=== PATIENT | female | born 1940 | race Caucasian/White ===

== ENCOUNTER 2017-06-18 12:32 | Outpatient (CLI) | payer MEDICARE | END 2017-06-18 12:33 | disposition short-term general hospital (02) | LOC: EMS 12:32 | PROVIDERS: ATTEND Surgery | DX: R53.1 Weakness (principal); R51 Headache; R42 Dizziness and giddiness; H53.8 Other visual disturbances | CPT/HCPCS: A0170; A0425; A0427 ==

== ENCOUNTER 2017-06-25 21:32 | Emergency (ER) | payer MEDICARE ==
[2017-06-25 22:20] LABS: BASOPHILS # (AUTO) 0.1 10^3/uL (0.0-0.1); EOSINOPHILS # (AUTO) 0.4 10^3/uL (0.0-0.7); EOSINOPHILS % (AUTO) 5.5 %; HCT - HEMATOCRIT 36.5 % (37.0-47.0); HGB - HEMOGLOBIN 12.1 g/dL (12.0-16.0); LYMPHOCYTES # (AUTO) 1.7 10^3/uL (1.5-3.5); LYMPHOCYTES % (AUTO) 26.2 %; MEAN CORPUSCULAR HEMOGLOBIN 31.2 pg (27.0-31.0); MEAN CORPUSCULAR HGB CONC 33.3 g/dL (32.0-36.0); MEAN CORPUSCULAR VOLUME 93.7 fL (81.0-99.0); MONOCYTES # (AUTO) 0.5 10^3/uL (0.0-1.0); NEUTROPHILS # (AUTO) 3.9 10^3/uL (1.5-6.6); NEUTROPHILS % (AUTO) 59.3 %; RED BLOOD COUNT 3.89 10^6/uL (4.20-5.40); RED CELL DISTRIBUTION WIDTH 13.4 % (12.0-15.0); UNCORRECTED WHITE BLOOD COUNT 6.6 x10^3/uL; WHITE BLOOD COUNT 6.6 x10^3/uL (4.8-10.8)
[2017-06-25 22:35] LABS: ALBUMIN/GLOBULIN RATIO 1.3 (1.0-2.2); BILIRUBIN,TOTAL 0.7 mg/dL (0.2-1.0); BUN - BLOOD UREA NITROGEN 19 mg/dL (6-20); CALCIUM 9.1 mg/dL (8.5-10.3); CARBON DIOXIDE - CO2 28 mmol/L (21-32); CHLORIDE 97 mmol/L (101-111); CREATININE 1.1 mg/dL (0.4-1.0); GFR - MDRD 48 (>89); GLUCOSE 111 mg/dL (70-100); LIPASE 24 U/L (22-51); SODIUM 136 mmol/L (135-145); TOTAL PROTEIN 7.3 g/dL (6.7-8.2)
[2017-06-25] MEDS ORDERED: SODIUM CHLORIDE 0.9% 1,000 ML IV ONE (22:50)
[2017-06-26] MEDS ORDERED: ACETAMINOPHEN 500 MG TABLET PO STA
[2017-06-26] MEDS ORDERED: ACETAMINOPHEN 500 MG TABLET PO ONE (00:08)
[2017-06-26 00:41] VITALS: BP 155/81
--- NOTE | 2017-06-26 00:49 | CT Preliminary Report ---
Exam: CT Head W/O IMPRESSION: Generalized age-related cortical atrophic changes without evidence of acute intracranial abnormality. [facility] SITE ID: [id number]
--- NOTE | 2017-06-26 01:05 | CT Report ---
EXAM: CT HEAD EXAM DATE: 06/26/2017 12:42 AM. CLINICAL HISTORY: Head pain. COMPARISON: None. TECHNIQUE: Multiaxial CT images were obtained from the foramen magnum to the vertex. IV contrast: Non e. Reformats: Coronal. In accordance with CT protocol optimization, one or more of the following dose reduction techniques w ere utilized for this exam: automated exposure control, adjustment of mA and/or KV based on patient s ize, or use of iterative reconstructive technique. FINDINGS: Parenchyma: No intraparenchymal hemorrhage. No evidence of mass, midline shift, or CT findings of acu te infarction. Lugo-white differentiation is distinct. Extraaxial Spaces: Normal for age. No subdural or epidural collections identified. Ventricles: The ventricles and cortical sulci are moderately enlarged, consistent with age-related ti ssue loss. Sinuses: Postsurgical changes from cataract extractions are noted in the globes. The paranasal and ma stoid sinuses are unremarkable. Bones: No evidence of fracture or calvarial defect. Other: Mild diffuse chronic microangiopathic white matter changes are evident. Moderate intracranial atherosclerosis is noted. IMPRESSION: Generalized age-related cortical atrophic changes without evidence of acute intracranial abnormality. [facility] Referring Provider Line: [phone] SITE ID: [id number]
--- NOTE | 2017-06-26 01:13 | ED Physician Documentation ---
History of Present Illness - Stated complaint Stated Complaint: HIGH BP - Chief complaint Chief Complaint: Cardiac - History obtained from History obtained from: Patient, Family - History of Present Illness Timing: Today - Additonal information Additional information: Patient is a 76 year old female with a history of parkinson's disease. Patient was started on a new medicine about three weeks ago, and one of the metabolites is a meth derivative. Patient states that today she has had high blood pressure and headaches. Patient states that she normally has low blood pressure. Patient denies any nausea, vomiting, chest pain, fever or chills. Review of Systems Constitutional: denies: Fever, Chills Eyes: denies: Decreased vision, Photophobia Ears: denies: Ear pain, Drainage/discharge Nose: denies: Congestion, Epistaxis Throat: denies: Oral lesions / sores, Sore throat Cardiac: denies: Chest pain / pressure, Palpitations Respiratory: denies: Cough GI: denies: Abdominal Pain, Nausea, Vomiting : denies: Dysuria, Frequency, Hesitancy Skin: denies: Rash, Lesions, Abrasion (s) Musculoskeletal: denies: Neck pain, Back pain, Extremity pain, Joint pain Neurologic: reports: Headache. denies: Generalized weakness, Focal weakness, Numbness, Syncope, Seizure, Head injury, LOC Psychiatric: denies: Depressed, Suicidal Immunocompromised: denies: Immunocompromised PD PAST MEDICAL HISTORY - Past Medical History Past Medical History: Yes Neuro: Parkinson's - Allergies Allergies/Adverse Reactions: Allergies Allergy/AdvReac Type Severity Reaction Status Date / Time iodine Allergy Hives Verified 06/25/17 21:43 - Social History Does the pt smoke?: No Smoking Status: Never smoker Does the pt drink ETOH?: No Does the pt have substance abuse?: No - Immunizations Immunizations are current?: Yes - POLST Patient has POLST: No PD ED PE NORMAL - Vitals Vital signs reviewed: Yes - General General: Alert and oriented X 3, No acute distress - HEENT HEENT: Atraumatic, PERRL, Pharynx benign - Neck Neck: Supple, no meningeal sign, No JVD - Cardiac Cardiac: RRR, No murmur - Respiratory Respiratory: No respiratory distress, Clear bilaterally - Abdomen Abdomen: Soft, Non tender, Non distended - Derm Derm: Normal color, Warm and dry, No rash - Extremities Extremities: No deformity, No edema, No calf tenderness / cord - Neuro Neuro: Alert and oriented X 3, 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, No sensory deficit, Normal speech - Psych Psych: Normal mood, Normal affect PD ED PE EXPANDED - HEENT HEENT: Dry mucous membranes - Neuro Neuro: Other (tremor of right upper extremity) Results - Vitals Vitals: Vital Signs - 24 hr 06/25/17 06/25/17 06/26/17 21:39 22:38 00:40 Temperature 36.4 C L Heart Rate 100 93 100 Respiratory 18 20 18 Rate Blood Pressure 191/110 H 177/93 H 155/81 H O2 Saturation 95 99 Oxygen O2 Source Room air - EKG (time done) 2222 Rate: Rate (enter#) (90) Rhythm: NSR [place]: LAD QRS: LVH Ischemia: Normal ST segments Compare to prior EKG: Old EKG unavailable - Labs Labs: Laboratory Tests 06/25/17 06/25/17 06/25/17 22:12 22:12 22:12 WBC 6.6 RBC 3.89 L Hgb 12.1 Hct 36.5 L MCV 93.7 MCH 31.2 H MCHC 33.3 RDW 13.4 Plt Count 207 MPV 8.0 Neut # 3.9 Lymph # 1.7 [place] # 0.5 Eos # 0.4 Baso # 0.1 Absolute Nucleated RBC 0.00 Nucleated RBC % 0.0 Sodium 136 Potassium 3.0 L Chloride 97 L Carbon Dioxide 28 Anion Gap 11.0 BUN 19 Creatinine 1.1 H Estimated GFR (MDRD) 48 L Glucose 111 H Calcium 9.1 Total Bilirubin 0.7 AST 16 ALT < 10 L Alkaline Phosphatase 78 Troponin I < 0.04 Total Protein 7.3 Albumin 4.1 Globulin 3.2 Albumin/Globulin Ratio 1.3 Lipase 24 - Rads (name of study) ct head Radiology: Final report received (no acute pathology) PD MEDICAL DECISION MAKING - ED course Complexity details: reviewed old records, reviewed results, re-evaluated patient , considered differential, d/w patient, d/w family, d/w production support consultant ED course: Patient was seen and examined at bedside. Iv access was gained and labs were drawn. ekg was performed but showed no acute ischemic changes. labs were drawn and showed some renal insufficiency, which patient stated she had a history of. patient stated sh had a mild headache and was treated with tylenol and fluids and sent for iimaging. when pateint returned the results were reviewed and showed no acute pathology. patient's headache resolved. Patient' s htn was likely secondary to the previous medications so the risk of starting antihypertensives outweighed the benefits. Patient had no focal neurological deficits and was stable for discharge with outpatient follow up. Departure - Departure Disposition: 01 Home, Self Care Clinical Impression: Drug reaction Condition: Good Instructions: ED Drug React Adverse Other Follow-Up: Misha Zavala MD [Primary Care Provider] - Comments: Your diagnostics today were within normal limits. You should follow the advice of your neurologist. You should no longer take the medications. You can take motrin or tylenol as needed for pain. I would not start blood pressure medications at this time due to your history of hypertension. You may return to the emergency department at any time for new, worsening or uncontrollable symptoms. Discharge Date/Time: 06/26/17 01:22
== END 2017-06-26 01:22 | disposition home or self-care (01) ==
LOC: ED 21:32
DX: T50.995A Adverse effect of other drugs, medicaments and biological substances, initial encounter (principal); R03.0 Elevated blood-pressure reading, without diagnosis of hypertension; G20 Parkinson's disease
CPT/HCPCS: 36415; 70450; 80053; 83690; 84484; 85025; 93005; 96360; 99283; 99284; A9270

== ENCOUNTER 2017-07-04 11:08 | Emergency (ER) | payer MEDICARE ==
--- NOTE | 2017-07-04 13:13 | ED Physician Documentation ---
History of Present Illness - Stated complaint Stated Complaint: HIGH BP - Chief complaint Chief Complaint: General - History obtained from History obtained from: Patient, Family (son) - History of Present Illness Timing: Other (76-year-old woman with Parkinson's disease, started on selegiline at the end of last month and discontinued it on or around the third of this month because of elevated blood pressures which are continued and make her nervous. She been seeing numbers as high as 200/100 at home. She is relatively asymptomatic with this, did have a mild headache which resolved with Tylenol. She denies chest pain, trouble breathing, or pedal edema. The blood pressure cuff at home is a bicep cuff, not a forearm cuff. She was seen here about a week ago and had testing done which were demonstrated creatinine 1.1, negative head CT.) Review of Systems Constitutional: denies: Fever, Chills Nose: denies: Rhinorrhea / runny nose, Congestion Cardiac: denies: Chest pain / pressure, Palpitations, Pedal edema, Calf pain Respiratory: denies: Dyspnea, Cough GI: denies: Abdominal Pain PD PAST MEDICAL HISTORY - Past Medical History Neuro: Parkinson's - Present Medications Home Medications: Ambulatory Orders Medication Instructions Recorded Confirmed Aspirin 325 mg PO DAILY 07/04/17 07/04/17 Carbidopa/Levodopa [Carbidopa-Levo 1 tab PO DAILY PM 07/04/17 07/04/17 ER 25-100 Tab] Carbidopa/Levodopa 1 tab PO QID 07/04/17 07/04/17 [Carbidopa-Levodopa 25-100 Tab] Cetirizine [ZyrTEC] 10 mg PO DAILY 07/04/17 07/04/17 Omeprazole [PriLOSEC] 20 mg PO DAILY 07/04/17 07/04/17 - Allergies Allergies/Adverse Reactions: Allergies Allergy/AdvReac Type Severity Reaction Status Date / Time iodine Allergy Hives Verified 06/25/17 21:43 - Social History Does the pt smoke?: No Smoking Status: Never smoker Does the pt drink ETOH?: No Does the pt have substance abuse?: No - Immunizations Immunizations are current?: Yes - POLST Patient has POLST: No PD ED PE NORMAL - Vitals Vital signs reviewed: Yes - General General: Alert and oriented X 3, No acute distress, Other (Pleasant, cooperative , oriented, sitting in a wheelchair in no distress) - Cardiac Cardiac: RRR, No murmur - Respiratory Respiratory: No respiratory distress, Clear bilaterally - Abdomen Abdomen: Non tender - Extremities Extremities: No edema, No calf tenderness / cord - Neuro Neuro: Alert and oriented X 3, Normal speech Results - Vitals Vitals: Vital Signs - 24 hr 07/04/17 07/04/17 11:40 13:07 Temperature 36.4 C L Heart Rate 80 Respiratory 17 Rate Blood Pressure 105/64 183/94 H O2 Saturation 98 Oxygen O2 Source Room air - EKG (time done) 1337 Rate: Rate (enter#) (85) Rhythm: NSR [place]: Normal QRS: LVH Ischemia: No: ST elevation c/w ischemia Compare to prior EKG: Unchanged from prior EKG - Labs Labs: Laboratory Tests 07/04/17 13:20 Sodium 138 Potassium 3.2 L Chloride 102 Carbon Dioxide 28 Anion Gap 8.0 BUN 13 Creatinine 0.9 Estimated GFR (MDRD) 61 L Glucose 104 H Calcium 9.3 Total Bilirubin 0.5 AST 15 ALT < 10 L Alkaline Phosphatase 69 Total Protein 7.5 Albumin 4.3 Globulin 3.2 Albumin/Globulin Ratio 1.3 Lipase 27 PD MEDICAL DECISION MAKING - ED course ED course: This is a 76-year-old woman with labile blood pressures after starting selegiline which she has since stopped. There is no evidence of endorgan damage. Given that her blood pressures have been labile and at times normotensive I would be hesitant to start an antihypertensive at this juncture. Departure - Departure Disposition: 01 Home, Self Care Clinical Impression: Hypertension Qualifiers: Hypertension type: essential hypertension Qualified Code(s): I10 - Essential ( primary) hypertension Condition: Good Record reviewed to determine appropriate education?: Yes Comments: Return if you develop severe symptoms such as a severe headache, chest pain, trouble breathing, otherwise follow-up with your physician.
[2017-07-04 14:13] LABS: ALBUMIN/GLOBULIN RATIO 1.3 (1.0-2.2); BILIRUBIN,TOTAL 0.5 mg/dL (0.2-1.0); BUN - BLOOD UREA NITROGEN 13 mg/dL (6-20); CALCIUM 9.3 mg/dL (8.5-10.3); CARBON DIOXIDE - CO2 28 mmol/L (21-32); CHLORIDE 102 mmol/L (101-111); CREATININE 0.9 mg/dL (0.4-1.0); GFR - MDRD 61 (>89); GLUCOSE 104 mg/dL (70-100); LIPASE 27 U/L (22-51); POTASSIUM 3.2 mmol/L (3.5-5.0); SODIUM 138 mmol/L (135-145); TOTAL PROTEIN 7.5 g/dL (6.7-8.2)
[2017-07-04] MEDS ORDERED: POTASSIUM BICARB 25 MEQ TABLET PO STA (14:33)
[2017-07-04] MEDS ORDERED: POTASSIUM BICARB 25 MEQ TABLET PO ONE (14:43)
[2017-07-04 14:52] VITALS: BP 189/88
== END 2017-07-04 15:00 | disposition home or self-care (01) ==
LOC: ED 11:08
DX: I10 Essential (primary) hypertension (principal); I48.91 Unspecified atrial fibrillation; G20 Parkinson's disease; Z79.82 Long term (current) use of aspirin
CPT/HCPCS: 36415; 80053; 83690; 93005; 99282; 99283; A9270

== ENCOUNTER 2017-08-30 10:14 | Outpatient (CLI) | payer MEDICARE | END 2017-08-30 10:15 | disposition critical access hospital (66) | LOC: EMS 10:14 | PROVIDERS: ATTEND Surgery | DX: R53.1 Weakness (principal); W18.30XA Fall on same level, unspecified, initial encounter; Y92.018 Other place in single-family (private) house as the place of occurrence of the external cause | CPT/HCPCS: A0425; A0427 ==

== ENCOUNTER 2017-08-30 10:17 | Observation (INO) | payer MEDICARE ==
[2017-08-30 10:49] LABS: BASOPHILS % (AUTO) 0.7 %; EOSINOPHILS # (AUTO) 0.1 10^3/uL (0.0-0.7); EOSINOPHILS % (AUTO) 1.8 %; HCT - HEMATOCRIT 37.4 % (37.0-47.0); HGB - HEMOGLOBIN 12.7 g/dL (12.0-16.0); LYMPHOCYTES # (AUTO) 1.1 10^3/uL (1.5-3.5); LYMPHOCYTES % (AUTO) 16.8 %; MEAN CORPUSCULAR HEMOGLOBIN 31.7 pg (27.0-31.0); MEAN CORPUSCULAR HGB CONC 33.9 g/dL (32.0-36.0); MEAN CORPUSCULAR VOLUME 93.4 fL (81.0-99.0); MEAN PLATELET VOLUME 8.1 fL (7.9-10.8); MONOCYTES # (AUTO) 0.4 10^3/uL (0.0-1.0); MONOCYTES % (AUTO) 6.2 %; NEUTROPHILS # (AUTO) 4.9 10^3/uL (1.5-6.6); NEUTROPHILS % (AUTO) 74.5 %; NUCLEATED RED BLOOD CELLS AUTO 0.1 /100WBC; RED CELL DISTRIBUTION WIDTH 13.4 % (12.0-15.0); UNCORRECTED WHITE BLOOD COUNT 6.6 x10^3/uL; WHITE BLOOD COUNT 6.6 x10^3/uL (4.8-10.8)
--- NOTE | 2017-08-30 11:00 | XRAY Preliminary Report ---
Exam: XR CHEST 1 VIEW IMPRESSION: 1. Linear bibasilar scar/atelectasis. 2. Cardiomegaly. No vascular congestion. [facility] SITE ID: [id number]
--- NOTE | 2017-08-30 11:02 | XRAY Report ---
EXAM: CHEST RADIOGRAPHY EXAM DATE: 08/30/2017 10:54 AM. CLINICAL HISTORY: Chest pain. COMPARISON: None. TECHNIQUE: 1 view. FINDINGS: Lungs/Pleura: Linear bibasilar opacities. No vascular congestion . No pneumothorax. Mediastinum: Heart is enlarged. Aorta is mildly tortuous. Other: None. IMPRESSION: 1. Linear bibasilar scar/atelectasis. 2. Cardiomegaly. No vascular congestion. [facility] Referring Provider Line: [phone] SITE ID: [id number]
[2017-08-30 11:09] LABS: ALBUMIN/GLOBULIN RATIO 1.4 (1.0-2.2); BILIRUBIN,TOTAL 0.6 mg/dL (0.2-1.0); BUN - BLOOD UREA NITROGEN 15 mg/dL (6-20); CARBON DIOXIDE - CO2 30 mmol/L (21-32); CHLORIDE 100 mmol/L (101-111); GFR - MDRD 54 (>89); GLUCOSE 121 mg/dL (70-100); LIPASE 22 U/L (22-51); SODIUM 141 mmol/L (135-145)
[2017-08-30 11:10] LABS: POTASSIUM 2.5 mmol/L (3.5-5.0)
[2017-08-30] MEDS ORDERED: POTASSIUM CHLOR 10 MEQ/100 ML 10 MEQ/100 ML BAG IV ONE ×2 (12:16→12:33)
[2017-08-30] MEDS ORDERED: POTASSIUM BICARB 25 MEQ TABLET PO STA (12:16)
--- NOTE | 2017-08-30 12:20 | ED Physician Documentation ---
PD HPI SYNCOPE - Stated complaint Stated Complaint: NEAR SYNCOPE - Chief complaint Chief Complaint: Neuro - History obtained from History obtained from: Patient, Family - Additional information Additional information: Is a 77-year-old of Parkinson's disease. She got up twice overnight to urinate , during both episodes she felt very weak and could not make it to the bathroom. She was helped to the floor by her on the second episode, but there was no syncope. Paramedics were summoned and she was noted to be in rapid atrial fibrillation which is a new phenomenon for her. This was associated with some nonradiating substernal chest pressure, clamminess and sweats but no shortness of breath or pedal edema. She feels pretty much back to normal right now. Review of Systems Ten Systems: 10 systems reviewed and negative Constitutional: reports: Sweats. denies: Fever, Chills Cardiac: reports: Chest pain / pressure. denies: Palpitations Respiratory: denies: Dyspnea, Cough GI: denies: Abdominal Pain PD PAST MEDICAL HISTORY - Past Medical History Past Medical History: Yes Neuro: Parkinson's - Present Medications Home Medications: Ambulatory Orders Medication Instructions Recorded Confirmed Aspirin 325 mg PO DAILY 07/04/17 08/30/17 Carbidopa/Levodopa [Carbidopa-Levo 1 tab PO DAILY PM 07/04/17 08/30/17 ER 25-100 Tab] Carbidopa/Levodopa 1 tab PO QID 07/04/17 08/30/17 [Carbidopa-Levodopa 25-100 Tab] Cetirizine [ZyrTEC] 10 mg PO DAILY 07/04/17 08/30/17 Omeprazole [PriLOSEC] 20 mg PO DAILY 07/04/17 08/30/17 - Allergies Allergies/Adverse Reactions: Allergies Allergy/AdvReac Type Severity Reaction Status Date / Time iodine Allergy Hives Verified 08/30/17 10:23 - Social History Does the pt smoke?: No Smoking Status: Never smoker Does the pt drink ETOH?: No Does the pt have substance abuse?: No - Family History Family history: reports: Non contributory - Immunizations Immunizations are current?: Yes - POLST Patient has POLST: No PD ED PE NORMAL - Vitals Vital signs reviewed: Yes - General General: Alert and oriented X 3, No acute distress - HEENT HEENT: PERRL, EOMI - Neck Neck: Supple, no meningeal sign, No bony TTP - Cardiac Cardiac: RRR, No murmur - Respiratory Respiratory: No respiratory distress, Clear bilaterally - Abdomen Abdomen: Soft, Non tender - Back Back: No CVA TTP, No spinal TTP - Derm Derm: Normal color, Warm and dry - Extremities Extremities: No edema, No calf tenderness / cord - Neuro Neuro: Alert and oriented X 3, Normal speech - Psych Psych: Normal mood, Normal affect Results - Vitals Vitals: Vital Signs - 24 hr 08/30/17 08/30/17 08/30/17 10:18 11:09 11:46 Temperature 36.4 C L 36.9 C Heart Rate 95 93 87 Respiratory 17 16 18 Rate Blood Pressure 179/119 H 168/89 H 167/88 H O2 Saturation 96 98 98 08/30/17 12:45 Temperature Heart Rate 81 Respiratory 16 Rate Blood Pressure 129/75 O2 Saturation 95 Oxygen O2 Source Room air - EKG (time done) 1022 Rate: Rate (enter#) (93) Rhythm: NSR QRS: LVH Ischemia: Non specific changes. No: ST elevation c/w ischemia Computer interpretation: Agree with computer - Labs Labs: Laboratory Tests 08/30/17 08/30/17 08/30/17 10:41 10:41 10:41 WBC 6.6 RBC 4.00 L Hgb 12.7 Hct 37.4 MCV 93.4 MCH 31.7 H MCHC 33.9 RDW 13.4 Plt Count 213 MPV 8.1 Neut # 4.9 Lymph # 1.1 L [place] # 0.4 Eos # 0.1 Baso # 0.0 Absolute Nucleated RBC 0.00 Nucleated RBC % 0.1 Sodium 141 Potassium 2.5 L* Chloride 100 L Carbon Dioxide 30 Anion Gap 11.0 BUN 15 Creatinine 1.0 Estimated GFR (MDRD) 54 L Glucose 121 H Calcium 9.0 Total Bilirubin 0.6 AST 22 ALT < 10 L Alkaline Phosphatase 73 Troponin I < 0.04 Total Protein 7.0 Albumin 4.1 Globulin 2.9 Albumin/Globulin Ratio 1.4 Lipase 22 - Rads (name of study) 1v chest Radiology: EMP read contemporaneously (Linear bibasilar scar/atelectasis, cardiomegaly) PD MEDICAL DECISION MAKING - ED course ED course: This is a 77-year-old woman with Parkinson's who presents with 2 near syncopal episodes and weakness, newly diagnosed paroxysmal rapid atrial fibrillation and profound hypokalemia. The potassium was repleted both IV and orally, she should probably be observed in the hospital overnight plus or minus echocardiogram and a call was placed to the hospitalist at 12:26 PM for observation. - Consults Consults: Consulted (name) (Dr Gareth Braden for obs at 1245pm by phone) Departure - Departure Disposition: ED Place in Observation Clinical Impression: Weakness, Hypokalemia, Cardiomegaly, Paroxysmal atrial fibrillation Chest pain Qualifiers: Chest pain type: unspecified Qualified Code(s): R07.9 - Chest pain, unspecified Condition: Stable
[2017-08-30] MEDS ORDERED: ACETAMINOPHEN 325 MG TABLET PO STA (12:26)
[2017-08-30] MEDS ORDERED: POTASSIUM BICARB 25 MEQ TABLET PO ONE (12:32)
[2017-08-30] MEDS ORDERED: SODIUM CHLORIDE FLUSH 0.9% 10 ML SYRINGE IVP PRN (12:49)
[2017-08-30] MEDS ORDERED: IBUPROFEN 600 MG TABLET PO PRN (12:49)
[2017-08-30] MEDS ORDERED: ACETAMINOPHEN 325 MG TABLET PO PRN (12:49)
[2017-08-30] MEDS ORDERED: FAMOTIDINE 20 MG TABLET PO SCH ×2 (13:00→21:00)
[2017-08-30] MEDS: SODIUM CHLORIDE FLUSH 0.9% 10 ML SYRINGE IVP SCH ×2 (13:33→22:26)
[2017-08-30] MEDS ORDERED: CETIRIZINE 10 MG TABLET PO PRN (14:36)
[2017-08-30] MEDS: ENOXAPARIN 40 MG/0.4 ML SYRINGE SUBQ SCH (15:00)
[2017-08-30] MEDS: CARBIDOPA/LEVODOPA 25 MG/100 MG TABLET PO SCH ×2 (15:00→19:03)
[2017-08-30] MEDS: NS W/40 MEQ KCL 1,000 ML IV SCH (18:43)
[2017-08-30] MEDS ORDERED: CARBIDOPA/LEVODOPA ER 25 MG/100 MG TABLET PO SCH (22:30)
--- NOTE | 2017-08-31 02:10 | Ultrasound Preliminary Report ---
Exam: US CAROTID DOPPLER COMPLETE IMPRESSION: 1. Bilateral carotid plaquing, left worse than right. There is 50-69% stenosis in the proximal left i nternal carotid artery. 2. Antegrade flow in both vertebral arteries. Validated velocity measurements with angiographic measurements and velocity criteria are extrapolated from diameter data as defined by the Society of Radiologists in Ultrasound Consensus Conference Radi ology 2003; 229;340-346. [facility] SITE ID: [id number]
--- NOTE | 2017-08-31 02:25 | Ultrasound Report ---
EXAM: CAROTID DOPPLER ULTRASOUND EXAM DATE: 08/31/2017 01:09 AM. CLINICAL HISTORY: Near syncope. COMPARISON: None. TECHNIQUE: Real-time sonographic vascular imaging was performed by the director of compliance through the [employer] d arterial system with a linear transducer utilizing color-flow, Doppler flow and spectral analysis. Multiple patient care representative static images were saved for review. FINDINGS: On the right there is plaquing in the proximal internal carotid artery without significant stenosis. Antegrade flow is seen in the right vertebral artery. On the left there is plaquing in the proximal internal carotid artery with stenosis of 50-69%. Antegrade flow is seen in the left vertebra l artery. VELOCITIES: Right: CCA Prox: PSV 84.4 cm/sec. CCA Dist: PSV 67.6 cm/sec, EDV 16.2 cm/sec. ECA: PSV 65.3 cm/sec. RT BULB: PSV 47.6 cm/sec, EDV 17.3 cm/sec, ICA/CCA Ratio: 0.7. ICA Prox: PSV 89.6 cm/sec, EDV 29.4 cm/sec, ICA/CCA Ratio: 1.3. ICA Mid: PSV 74.2 cm/sec, EDV 25.5 cm/sec, ICA/CCA Ratio: 1.1. ICA Dist: PSV 106.6 cm/sec, EDV 32.5 cm/sec, ICA/CCA Ratio: 1.6. Vertebral Artery: PSV 108 cm/sec. RVA flow direction: Antegrade. Left: CCA Prox: PSV 120 cm/sec. CCA Dist: PSV 64.9 cm/sec, EDV 14.7 cm/sec. ECA: PSV 173 cm/sec. LFT BULB: PSV 128.3 cm/sec, EDV 26.27 cm/sec, ICA/CCA Ratio: 1.96. ICA Prox: PSV 159.5 cm/sec, EDV 35.2 cm/sec, ICA/CCA Ratio: 2.4. ICA Mid: PSV 117.4 cm/sec, EDV 27.2 cm/sec, ICA/CCA Ratio: 1.8. ICA Dist: PSV 67.4 cm/sec, EDV 19.8 cm/sec, ICA/CCA Ratio: 1.0. Vertebral Artery: PSV 84.1 cm/sec. RVA flow direction: Antegrade. Other: None. IMPRESSION: 1. Bilateral carotid plaquing, left worse than right. There is 50-69% stenosis in the proximal left i nternal carotid artery. 2. Antegrade flow in both vertebral arteries. Validated velocity measurements with angiographic measurements and velocity criteria are extrapolated from diameter data as defined by the Society of Radiologists in Ultrasound Consensus Conference Radi ology 2003; 229;340-346. [facility] Referring Provider Line: [phone] SITE ID: [id number]
[2017-08-31 06:26] LABS: CALCIUM 8.5 mg/dL (8.5-10.3); CREATININE 0.9 mg/dL (0.4-1.0); MAGNESIUM 1.8 mg/dL (1.7-2.8)
[2017-08-31] MEDS: SODIUM CHLORIDE FLUSH 0.9% 10 ML SYRINGE IVP SCH ×2 (06:34→14:06)
[2017-08-31] MEDS: CARBIDOPA/LEVODOPA 25 MG/100 MG TABLET PO SCH ×3 (07:04→15:07)
[2017-08-31] MEDS: NS W/40 MEQ KCL 1,000 ML IV SCH (07:06)
[2017-08-31] MEDS ORDERED: POTASSIUM CHLORIDE 20 MEQ TABLET PO SCH (08:21)
[2017-08-31] MEDS: ENOXAPARIN 40 MG/0.4 ML SYRINGE SUBQ SCH (08:51)
[2017-08-31] MEDS ORDERED: ASPIRIN EC 81 MG TABLET PO SCH (09:00)
[2017-08-31] MEDS ORDERED: POLYETHYLENE GLYCOL 3350 17 GM PACKET PO SCH (09:00)
[2017-08-31] MEDS ORDERED: CARVEDILOL 3.125 MG TABLET PO SCH (11:00)
--- NOTE | 2017-08-31 16:49 | Discharge Plan ---
Discharge Plan Disposition: 01 Home, Self Care Condition: Fair Prescriptions: Carvedilol [Coreg] 3.125 mg PO BID #60 tablet Diet: Cardiac Activity Restrictions: Activity as Tolerated Driving Restrictions: No Assistance Devices: Walker Instruction Topics: Carvedilol tablets Additional Instructions or Follow Up instructions: Start taking 1 adult Aspirin daily (325 mg). Start taking Carvedilol 1 tablet twice a day. Start using spport stockings daily, when awake, off at bedtime. Stay hydrated. See your doctor in 1-2 weeks for a Potassium blood test and for furter medicatipn adjustments and to have a stress test arranged. No Smoking: If you smoke, Please STOP! Call for help. Follow-up with: Misha Zavala MD [Primary Care Provider] -
[2017-08-31 17:49] VITALS: BP 170/69
--- NOTE | 2017-09-20 12:46 | HISTORY & PHYSICAL EXAMINATION ---
DATE OF SERVICE: 08/30/2017 Physician: Brielle Knapp MD CHIEF COMPLAINT: Near syncope. PAST MEDICAL HISTORY: Parkinson's, GERD, Seasonal allergies. HISTORY OF PRESENT ILLNESS: This is a 77-year-old white female with a history of Parkinson's disease, on medications. She denies a past cardiac history. The patient presents after getting up twice overnight to go to the bathroom and felt very weak with both episodes. With the second episode , her helped her "slump to the floor." There was no syncope or fall or trauma during either episode. EMS was called to transport the patient to the emergency room and their assessment of her initial heart rhythm was atrial fibrillation, which is new onset for her. The patient remembers feeling palpitations and chest pressure, but no shortness of breath. In general, the patient denies anginal episodes or CHF complaints. REVIEW OF SYSTEMS: A comprehensive review of systems was performed and the pertinent positives are as above. SOCIAL HISTORY: The patient lives with her . She no longer drives a car. The patient never smoked. She drinks no alcohol. There is no history of drug abuse. FAMILY HISTORY: No inherited diseases. MEDICATIONS AT HOME 1. Adult-dose aspirin daily. 2. Carbidopa/levodopa. 3. Cetirizine 10 mg p.o. daily. 4. Prilosec 20 mg p.o. daily. ALLERGIES: IODINE, which caused hives. PHYSICAL EXAMINATION GENERAL: Elderly white female in no distress sitting upright in bed. VITAL SIGNS: Blood pressure 180/119 on admission, heart rate 95 in atrial flutter with 2:1 block, O2 saturation 95% on room air, afebrile. HEAD/NECK: HEENT is unremarkable. Her mucosa is moist. Neck shows no JVD, carotid bruits, thyromegaly or lymphedema. CHEST: Clear. Heart sounds are regular with a soft systolic murmur at the lower left sternal border. No gallop or heave. ABDOMEN: Soft, positive bowel sounds, nontender. EXTREMITIES: No clubbing, cyanosis, or edema. STUDIES EKG: Atrial flutter with 2:1 block, LVH voltage. Chest x-ray: Cardiomegaly, no vascular congestion seen. Labs: Sodium 141, potassium 2.5. BUN and creatinine normal. Liver tests normal. Troponin not detectable. Lipase normal. No INR was done. White count 6.6 with a normal differential. Hemoglobin 12.7, platelet count 213. IMPRESSION/DIAGNOSES 1. New onset of atrial fibrillation flutter. 2. Weakness/near syncope, possibly related to a rapid heart rate or new heart rhythm vs orthostatic. 3. Parkinson disease. 4. History of gastroesophageal reflux disease. 5. Hypokalemia. RECOMMENDATIONS: Place the patient in Observation on telemetry, check orthostatic vital signs. Obtain an echo to evaluate LV and RV contractility. Cycle troponins x3 to rule out an ID as the cause of this event. Obtain a carotid Doppler. Obtain a urine electrolyte panel to determine why she has such a low potassium in the face of being on no diuretics and presumably an adequate oral potassium intake in her diet. Start the patient on support stockings if orthostasis is evident (which is highly suspected in a patient with Parkinson disease, as they get autonomic dysfunction frequently). Code status: Full code DVT prophylaxis: Lovenox Attestation: Expected discharge or transfer to another facility within 96 hours : Yes TD: 09/20/2017 12:51 [facility]
--- NOTE | 2017-09-20 13:21 | DISCHARGE SUMMARY ---
DATE OF admission: 08/30/2017 DATE OF discharge: 08/31/2017 Physician: Brielle Knapp MD HISTORY OF PRESENT ILLNESS: This is a 77-year-old white female with a history of Parkinson disease, who was admitted after 2 episodes of near syncope while walking to her bathroom at night and was found in atrial flutter upon presentation to the emergency room, hypokalemic, and admitted for management of near syncope, atrial fib-flutter of new onset, and hypokalemia evaluation and management. HOSPITAL COURSE AND DISCHARGE DIAGNOSES 1. New onset of atrial fibrillation-flutter. The patient converted to sinus rhythm spontaneously. The patient ruled out for an MA by troponins. The patient underwent an echocardiogram which showed mild global hypokinesis with an EF of 45-50%, as well as mild diastolic dysfunction, mild LA and RA enlargement, moderate aortic thickening but no stenosis, trace aortic insufficiency, mild mitral regurgitation, moderate tricuspid regurgitation with normal, calculated PA pressure of 32 mmHg. The patient was started on carvedilol for the newly diagnosed cardiomyopathy, as well as daily aspirin. The patient was advised to see her primary care doctor and be referred to a dining host for further evaluation of the etiology of the cardiomyopathy. The patient's CHADS score was calculated at 1 (CHF, newly diagnosed); therefore she was not deemed a candidate for oral anticoagulation at this time. 2. Near syncope. The patient had orthostatic vital signs checked and indeed she had greater than 20 mmHg drop in systolic blood pressure. This was felt to be secondary to the autonomic dysfunction often seen in Parkinson's patients. She was discharged with knee-high BRAYDEN stockings or recommended to even get Jobst stockings for better compression. These were advised to be put on daily and taken off at bedtime. 3. Hypokalemia. The patient had replacement of her potassium orally. Her calcium and magnesium levels were stable. She was advised to have more intake of potassium in her diet (patient is very careful about her diet and states that she had been on a very low potassium diet because of what her ate). Her urinary potassium excretion, however, was higher than what is expected in a patient with hypokalemia. This, therefore, needs further evaluation. The patient underwent a carotid Doppler for evaluation of carotid disease as the cause of the near syncope and indeed she was found to have moderate disease with carotid plaquing of 50% to 69% of the left internal carotid artery. Cholesterol management as well as blood pressure control were advised with that finding. Having been started on Coreg for the cardiomyopathy, this should also help with hypertension management. Only a low dose of antihypertensives were started because of her orthostasis. Followup with her PCP and her dining host is advised. CONDITION AT DISCHARGE: Fair. LABORATORY AND IMAGING: Reviewed and summarized above. PHYSICAL EXAMINATION ON DISCHARGE VITAL SIGNS: Blood pressure 168/70, heart rate 80-90 in sinus rhythm. HEENT: Unremarkable. NECK: Without JVD, or carotid bruits. CHEST: Clear. CARDIAC: Heart sounds with an unchanged soft systolic murmur. ABDOMEN: Soft and unremarkable. EXTREMITIES: With no edema. NEUROLOGIC: Intact. DISCHARGE MEDICATIONS 1. Carbidopa/levodopa at her previous doses 2. Coreg 3.125 mg p.o. b.i.d. 3. Adult-dose aspirin daily. 4. Zyrtec as previously dosed 5. Prilosec as previously dosed at home. FOLLOWUP: With her PCP and/or referral to a dining host. CODE STATUS: FULL CODE. TIME REQUIRED FOR COMPLETING THE ENTIRE DISCHARGE: 30 minutes. TD: 09/20/2017 13:07 CARISSA
== END 2017-08-31 17:40 | disposition home or self-care (01) ==
LOC: ED 10:17 → OBS 12:49
PROVIDERS: ADMIT Internal Medicine; ATTEND Internal Medicine
DX: I48.92 Unspecified atrial flutter (principal); I48.0 Paroxysmal atrial fibrillation; I11.9 Hypertensive heart disease without heart failure; I07.1 Rheumatic tricuspid insufficiency; R55 Syncope and collapse; E87.6 Hypokalemia; I65.22 Occlusion and stenosis of left carotid artery; G20 Parkinson's disease; Z79.82 Long term (current) use of aspirin
CPT/HCPCS: 36415; 71010; 80048; 80053; 83690; 83735; 84132; 84133; 84156; 84300; 84484; 85025; 93005; 93306; 93880; 96361; 96365; 96366; 96372; 99284; 99285; A9270; G0378; J1650

== ENCOUNTER 2017-10-03 11:23 | Outpatient (CLI) | payer MEDICARE | END 2017-10-03 11:24 | disposition home or self-care (01) | LOC: LAB.F 11:23 | PROVIDERS: ATTEND Family Medicine | DX: E87.6 Hypokalemia (principal); I48.0 Paroxysmal atrial fibrillation | CPT/HCPCS: 36415; 84132 ==

== ENCOUNTER 2017-10-19 10:53 | Outpatient (CLI) | payer MEDICARE ==
[2017-10-19 18:02] LABS: CALCIUM 8.9 mg/dL (8.5-10.3); CREATININE 1.2 mg/dL (0.4-1.0)
== END 2017-10-19 10:54 | disposition home or self-care (01) ==
LOC: LAB.F 10:53
PROVIDERS: ATTEND Family Medicine
DX: I10 Essential (primary) hypertension (principal); E87.6 Hypokalemia
CPT/HCPCS: 36415; 80048

== ENCOUNTER 2017-11-08 14:13 | Outpatient (CLI) | payer MEDICARE ==
[2017-11-08 17:41] LABS: CALCIUM 8.7 mg/dL (8.5-10.3)
== END 2017-11-08 14:14 | disposition home or self-care (01) ==
LOC: LAB.F 14:13
PROVIDERS: ATTEND Family Medicine
DX: I10 Essential (primary) hypertension (principal)
CPT/HCPCS: 36415; 80048

== ENCOUNTER 2023-05-27 15:34 | Outpatient (CLI) | payer MEDICARE | END 2023-05-27 23:59 | disposition critical access hospital (66) | LOC: EMS 15:34 | DX: R06.4 Hyperventilation (principal); R42 Dizziness and giddiness | CPT/HCPCS: A0425; A0429 ==

== ENCOUNTER 2023-05-27 16:32 | Emergency (ER) | payer MEDICARE ==
--- NOTE | 2023-05-27 16:43 | ED Physician Documentation ---
History of Present Illness - Stated complaint Stated Complaint: SOA - Chief complaint Chief Complaint: Resp - History obtained from History obtained from: Patient, EMS - History of Present Illness Timing: Today Pain level max: 0 Pain level now: 0 - Additonal information Additional information: 82 year old female with a history of parkinson's disease, states that she took a nap today and when she woke up, she felt lightheaded and short of breath. This lasted about 45 minutes. she states she felt like she was not in control of her breathing. states feels normal now. Lasted about 45 mins. No fevers. No chills. No cough. No congestion. No recent illnesses. No chest pain. Nothing makes it better or worse. Currently asymptomatic. Review of Systems Constitutional: denies: Fever, Chills Cardiac: denies: Chest pain / pressure, Palpitations Respiratory: denies: Cough, Wheezing GI: denies: Abdominal Pain, Nausea, Vomiting, Diarrhea Musculoskeletal: denies: Neck pain, Back pain Neurologic: denies: Headache PD PAST MEDICAL HISTORY - Past Medical History Cardiovascular: None Respiratory: Pneumonia Endocrine/Autoimmune: Other GI: GERD, Hiatal hernia, Diverticulitis : None HEENT: None Psych: Anxiety Derm: None - Past Surgical History HEENT: Cataracts, Tonsil/Adenoidectomy - Present Medications Home Medications: Ambulatory Orders Medication Instructions Recorded Confirmed Carbidopa/Levodopa [Carbidopa-Levo 1 tab PO 2230 07/04/17 08/30/17 ER 25-100 Tab] Carbidopa/Levodopa 1.5 tab PO 0700,1500 07/04/17 08/30/17 [Carbidopa-Levodopa 25-100 Tab] Cetirizine [ZyrTEC] 10 mg PO DAILY PRN 07/04/17 08/30/17 Omeprazole [PriLOSEC] 20 mg PO DAILY PRN 07/04/17 08/30/17 Carbidopa/Levodopa 2 tab PO 1100,1900 08/30/17 08/30/17 [Carbidopa-Levodopa 25-100 Tab] carvediloL [Coreg] 3.125 mg PO BID #60 tablet 08/31/17 - Allergies Allergies/Adverse Reactions: Allergies Allergy/AdvReac Type Severity Reaction Status Date / Time selegiline Allergy Severe Unknown Verified 08/30/17 13:23 iodine Allergy Hives Verified 08/30/17 10:23 - Social History Does the pt smoke?: No Smoking Status: Never smoker Does the pt drink ETOH?: No Does the pt have substance abuse?: No - Immunizations Immunizations are current?: Yes - POLST Patient has POLST: No PD ED PE NORMAL - Vitals Vital signs reviewed: Yes - General General: Alert and oriented X 3, No acute distress - HEENT HEENT: PERRL, Moist mucous membranes - Neck Neck: Supple, no meningeal sign - Cardiac Cardiac: RRR, No murmur, Strong equal pulses - Respiratory Respiratory: No respiratory distress, Clear bilaterally - Abdomen Abdomen: Soft, Non tender, Non distended - Derm Derm: Warm and dry - Extremities Extremities: No edema, No calf tenderness / cord - Neuro Neuro: Alert and oriented X 3, biomedical equipment support specialist 2-12 intact, No motor deficit, No sensory deficit, Normal speech Eye Opening: Spontaneous Motor: Obeys Commands Verbal: Oriented GCS Score: 15 - Psych Psych: Normal mood, Normal affect Results - Vitals Vitals: Vital Signs - 24 hr 05/27/23 05/27/23 16:39 18:02 Temperature 36.1 C L Heart Rate 83 91 Respiratory 18 23 Rate Blood Pressure 169/77 H 195/78 H O2 Saturation 97 98 Oxygen O2 Source Room air - EKG (time done) 1707 EKG releavant findings:: EKG personally interpreted by author of this note. Relevant findings are: Rate: Rate (enter#) (82) Rhythm: NSR [place]: Normal Intervals: Normal [place] QRS: Normal Ischemia: T wave inversion (V1-2) - Labs Labs: Laboratory Tests 05/27/23 05/27/23 17:10 17:10 WBC 5.6 RBC 3.47 L Hgb 11.6 L Hct 35.6 L MCV 102.6 H MCH 33.4 H MCHC 32.6 RDW 12.6 Plt Count 165 MPV 9.4 Neut # (Auto) 3.2 Lymph # (Auto) 1.6 [place] # (Auto) 0.5 Eos # (Auto) 0.3 Baso # (Auto) 0.1 Absolute Nucleated RBC 0.00 Nucleated RBC % 0.0 Sodium 138 Potassium 4.1 Chloride 106 Carbon Dioxide 27 Anion Gap 5.0 L BUN 28 H Creatinine 1.0 Estimated GFR (MDRD) 53 L Glucose 110 H Calcium 9.6 Phosphorus 3.3 Magnesium 2.0 Total Bilirubin 0.4 AST 19 ALT 3 L Alkaline Phosphatase 53 Troponin I High Sens 5.3 Total Protein 6.5 Albumin 4.1 Globulin 2.4 Albumin/Globulin Ratio 1.7 Lipase 28 - Rads (name of study) cxr Relevant Findings:: Final report received, See rad report PD Medical Decision Making - ED course Complexity details: reviewed results, re-evaluated patient, considered differential, d/w patient, d/w family ED course: Patient is well-appearing, nontoxic. Afebrile. Asymptomatic here. Ambulating without any difficulty. Appears to be at her normal neurological baseline. No significant lab abnormalities. Unclear etiology of her symptoms earlier today, possible panic attack? She has had a panic attack in the past that felt similar. We will have her follow-up with her doctor for further care. No focal neurological deficits. No indication for further work-up at this time. Patient and family counseled regarding signs and symptoms for which I believe and urgent re-evaluation would be necessary. Patient with good understanding of and agreement to plan and is comfortable going home at this time This document was made in part using voice recognition software. While efforts are made to proofread this document, sound alike and grammatical errors may occur. IMPRESSION: Small left-sided pleural effusion suspected. Moderate cardiomegaly. Moderate hiatal hernia. Departure - Departure Disposition: 01 Home, Self Care Clinical Impression: Dizzy Dyspnea Qualifiers: Dyspnea type: unspecified Qualified Code(s): R06.00 - Dyspnea, unspecified Condition: Good Instructions: ED Dizziness UKO, ED Dyspnea Shortness of Breath Follow-Up: KAROL ESPINAL MD [Primary Care Provider] - Within 1 week Comments: Please follow-up with your doctor for their care. Please return if you worsen. Please continue your current medications at home. There are no significant laboratory abnormalities to explain your symptoms. Your potassium level is normal today. Your EKG, chest x-ray and EKG do not show any acute abnormalities either. Forms: PCP List Discharge Date/Time: 05/27/23 18:02
--- NOTE | 2023-05-27 17:11 | XRAY Report ---
PROCEDURE: Chest 1 View X-Ray INDICATIONS: Chest Pain TECHNIQUE: One view of the chest was acquired. COMPARISON: 08/30/2017 FINDINGS: Surgical changes and devices: None. Lungs and pleura: Minimal blunting of the left costophrenic angle is seen. No pneumothorax is seen. No focal infiltrates are seen. Mediastinum: The aorta is prominent and tortuous. The cardiac contours are moderately enlarged. Ther e is a moderate hiatal hernia. Bones and chest wall: No suspicious bony lesions. Age-appropriate degenerative changes are seen. Overlying soft tissues appear unremarkable. IMPRESSION: Small left-sided pleural effusion suspected. Moderate cardiomegaly. Moderate hiatal hernia. Reviewed by: Alexander Jones MD on 05/27/2023 4:10 PM AKGAUDENCIO Approved by: Alexander Jones MD on 05/27/2023 4:10 PM AKDT Station ID: [id number]
[2023-05-27 17:14] LABS: BASOPHILS # (AUTO) 0.1 10^3/uL (0.0-0.1); BASOPHILS % (AUTO) 0.9 %; EOSINOPHILS # (AUTO) 0.3 10^3/uL (0.0-0.7); EOSINOPHILS % (AUTO) 5.4 %; HCT - HEMATOCRIT 35.6 % (37.0-47.0); HGB - HEMOGLOBIN 11.6 g/dL (12.0-16.0); LYMPHOCYTES # (AUTO) 1.6 10^3/uL (1.5-3.5); LYMPHOCYTES % (AUTO) 28.8 %; MEAN CORPUSCULAR HEMOGLOBIN 33.4 pg (27.0-31.0); MEAN CORPUSCULAR HGB CONC 32.6 g/dL (32.0-36.0); MEAN CORPUSCULAR VOLUME 102.6 fL (81.0-99.0); MEAN PLATELET VOLUME 9.4 fL (7.9-10.8); MONOCYTES # (AUTO) 0.5 10^3/uL (0.0-1.0); MONOCYTES % (AUTO) 8.6 %; NEUTROPHILS # (AUTO) 3.2 10^3/uL (1.5-6.6); NEUTROPHILS % (AUTO) 56.1 %; PLT - PLATELET COUNT 165 10^3/uL (130-450); RED BLOOD COUNT 3.47 10^6/uL (4.20-5.40); RED CELL DISTRIBUTION WIDTH 12.6 % (12.0-15.0); WHITE BLOOD COUNT 5.6 x10^3/uL (4.8-10.8)
[2023-05-27 17:33] LABS: ALBUMIN 4.1 g/dL (3.2-5.5); ALBUMIN/GLOBULIN RATIO 1.7 (1.0-2.2); BILIRUBIN,TOTAL 0.4 mg/dL (0.2-1.0); CALCIUM 9.6 mg/dL (8.5-10.3); PHOSPHORUS 3.3 mg/dL (2.5-5.0); POTASSIUM 4.1 mmol/L (3.5-4.5); TOTAL PROTEIN 6.5 g/dL (6.4-8.9)
[2023-05-27 17:35] LABS: TROPONIN I HIGH SENSITIVITY 5.3 ng/L (2.3-14.8)
[2023-05-27 18:10] VITALS: BP 195/78; O2SAT 98
== END 2023-05-27 18:02 | disposition home or self-care (01) ==
LOC: EDUNIT# → ED 16:32
DX: R42 Dizziness and giddiness (principal); R06.00 Dyspnea, unspecified; Z79.899 Other long term (current) drug therapy
CPT/HCPCS: 36415; 80053; 83690; 83735; 84100; 84484; 85025; 93005; 99283; 99284

== ENCOUNTER 2023-08-02 15:00 | Outpatient (CLI) | payer MEDICARE | END 2023-08-02 23:59 | disposition EMS.NT | LOC: EMS 15:00 | DX: Z03.89 Encounter for observation for other suspected diseases and conditions ruled out (principal) ==

== ENCOUNTER 2024-01-05 08:20 | Outpatient (CLI) | payer MEDICARE | END 2024-01-05 23:59 | disposition EMS.NT | LOC: EMS 08:20 | DX: R10.10 Upper abdominal pain, unspecified (principal); I10 Essential (primary) hypertension ==

== ENCOUNTER 2024-04-07 18:23 | Outpatient (CLI) | payer MEDICARE | END 2024-04-07 23:59 | disposition critical access hospital (66) | LOC: EMS 18:23 | DX: R10.11 Right upper quadrant pain (principal); R10.12 Left upper quadrant pain; R11.2 Nausea with vomiting, unspecified; M54.50 Low back pain, unspecified | CPT/HCPCS: A0425; A0427 ==

== ENCOUNTER 2024-04-07 18:49 | Emergency (ER) | payer MEDICARE ==
--- NOTE | 2024-04-07 19:30 | ED Physician Documentation ---
History of Present Illness - Stated complaint Stated Complaint: ABD PAIN/CRAMPING - Chief complaint Chief Complaint: Abd Pain - Additonal information Additional information: 83-year-old female past medical significant for Parkinson's disease presents with abdominal pain. Diffuse abdominal pain began 2 hours ago, at 5:00 immediately after completing dinner. Reports 1 similar episode of pain in the past.Denies abdominal surgeries. Review of Systems Constitutional: denies: Fever Eyes: denies: Loss of vision Ears: denies: Loss of hearing Nose: denies: Rhinorrhea / runny nose Throat: denies: Dental pain / toothache Cardiac: denies: Chest pain / pressure Respiratory: denies: Dyspnea GI: reports: Abdominal Pain, Nausea, Vomiting PD PAST MEDICAL HISTORY - Past Medical History Cardiovascular: None Respiratory: Pneumonia Endocrine/Autoimmune: Other GI: GERD, Hiatal hernia, Diverticulitis : None HEENT: None Psych: Anxiety Derm: None - Past Surgical History Past Surgical History: No HEENT: Cataracts, Tonsil/Adenoidectomy - Present Medications Home Medications: Ambulatory Orders Medication Instructions Recorded Confirmed Carbidopa/Levodopa [Carbidopa-Levo 1 tab PO 2230 07/04/17 08/30/17 ER 25-100 Tab] Carbidopa/Levodopa 1.5 tab PO 0700,1500 07/04/17 08/30/17 [Carbidopa-Levodopa 25-100 Tab] Cetirizine [ZyrTEC] 10 mg PO DAILY PRN 07/04/17 08/30/17 Omeprazole [PriLOSEC] 20 mg PO DAILY PRN 07/04/17 08/30/17 Carbidopa/Levodopa 2 tab PO 1100,1900 08/30/17 08/30/17 [Carbidopa-Levodopa 25-100 Tab] carvediloL [Coreg] 3.125 mg PO BID #60 tablet 08/31/17 - Allergies Allergies/Adverse Reactions: Allergies Allergy/AdvReac Type Severity Reaction Status Date / Time selegiline Allergy Severe Unknown Verified 04/07/24 18:56 dicyclomine [From Bentyl] Allergy Unknown Verified 04/07/24 18:56 iodine Allergy Hives Verified 04/07/24 18:56 tramadol Allergy Unknown Verified 04/07/24 18:56 - Social History Does the pt smoke?: No Smoking Status: Never smoker Does the pt drink ETOH?: No Does the pt have substance abuse?: No - Immunizations Immunizations are current?: Yes - POLST Patient has POLST: No PD ED PE NORMAL - Vitals Vital signs reviewed: Yes - General General: Alert and oriented X 3 - HEENT HEENT: Atraumatic, PERRL, EOMI, Ears normal, Moist mucous membranes - Neck Neck: Supple, no meningeal sign, No bony TTP, No adenopathy, Thyroid normal, No JVD - Cardiac Cardiac: RRR, No murmur - Respiratory Respiratory: No respiratory distress - Female Female : Deferred - Rectal Rectal: Deferred - Back Back: No CVA TTP - Derm Derm: Normal color - Extremities Extremities: No deformity - Neuro Neuro: Alert and oriented X 3, hop trainer 2-12 intact, No sensory deficit, Other (Notable upper extremity tremors.) Results - Vitals Vitals: Vital Signs - 24 hr 04/07/24 19:01 Temperature 36.3 C L Heart Rate 84 Respiratory 18 Rate Blood Pressure 143/111 H O2 Saturation 95 Oxygen O2 Source Room air - Labs Labs: Laboratory Tests 04/07/24 04/07/24 04/07/24 19:29 19:29 19:29 WBC 6.1 RBC 3.32 L Hgb 10.7 L Hct 34.6 L MCV 104.2 H MCH 32.2 H MCHC 30.9 L RDW 13.0 Plt Count 181 MPV 9.7 Neut # (Auto) 3.9 Lymph # (Auto) 1.3 L [place] # (Auto) 0.5 Eos # (Auto) 0.2 Baso # (Auto) 0.0 Absolute Nucleated RBC 0.00 Nucleated RBC % 0.0 Sodium 138 Potassium 4.4 Chloride 104 Carbon Dioxide 29 Anion Gap 5.0 L BUN 33 H Creatinine 1.2 Estimated GFR (MDRD) 43 L Glucose 144 H Lactic Acid Calcium 9.4 Total Bilirubin 0.4 AST 19 ALT 5 L Alkaline Phosphatase 43 Troponin I High Sens 5.3 Total Protein 6.7 Albumin 4.0 Globulin 2.7 Albumin/Globulin Ratio 1.5 Lipase 29 Urine Color Urine Clarity Urine pH Ur Specific [place] Urine Protein Urine Glucose (UA) Urine Ketones Urine Occult Blood Urine Nitrite Urine Bilirubin Urine Urobilinogen Ur Leukocyte Esterase Ur Microscopic Review Urine Culture Comments 04/07/24 04/07/24 19:29 20:22 WBC RBC Hgb Hct MCV MCH MCHC RDW Plt Count MPV Neut # (Auto) Lymph # (Auto) [place] # (Auto) Eos # (Auto) Baso # (Auto) Absolute Nucleated RBC Nucleated RBC % Sodium Potassium Chloride Carbon Dioxide Anion Gap BUN Creatinine Estimated GFR (MDRD) Glucose Lactic Acid 0.5 Calcium Total Bilirubin AST ALT Alkaline Phosphatase Troponin I High Sens Total Protein Albumin Globulin Albumin/Globulin Ratio Lipase Urine Color YELLOW Urine Clarity HAZY Urine pH 7.0 Ur Specific [place] 1.020 Urine Protein TRACE Urine Glucose (UA) NEGATIVE Urine Ketones TRACE Urine Occult Blood NEGATIVE Urine Nitrite NEGATIVE Urine Bilirubin NEGATIVE Urine Urobilinogen 0.2 (NORMAL) Ur Leukocyte Esterase SMALL H Ur Microscopic Review INDICATED Urine Culture Comments Not Reportable PD Medical Decision Making - ED course Complexity details: reviewed results, d/w patient ED course: 83-year-old female presents with abdominal pain. This is immediately after a meal. Initial differential diagnosis included but not limited to gastritis, gallbladder pathology, mesenteric ischemia. Afebrile, he medically stable. Benign abdominal exam on arrival. Labs all reassuring. Patient offered CT imaging which she refused. Reported that she felt better wants to go home. Tolerated p.o. trial in the emergency department. Discharged with instructions to return promptly for new or worsening episodes of pain. Departure - Departure Disposition: 01 Home, Self Care Instructions: ED Abdominal Pain Female Non-Specific Abdominal Pain Comments: Thank you for allowing us to care for you today [facility]. Today in the emergency department you were evaluated for any possible dangerous or life-threatening medical emergency. The testing performed in the emergency department today including your lab work and urine studies were reassuring. We discussed CT imaging of your abdomen which you have declined. It is important however that if you have any recurrent episodes of pain that you return to the emergency department. Please follow-up with your primary care doctor soon as possible concerning your ER evaluation. If you have new or worsening symptoms at any time please return. Forms: PCP List
[2024-04-07 19:37] LABS: BASOPHILS % (AUTO) 0.7 %; EOSINOPHILS # (AUTO) 0.2 10^3/uL (0.0-0.7); HCT - HEMATOCRIT 34.6 % (37.0-47.0); HGB - HEMOGLOBIN 10.7 g/dL (12.0-16.0); LYMPHOCYTES # (AUTO) 1.3 10^3/uL (1.5-3.5); LYMPHOCYTES % (AUTO) 22.1 %; MEAN CORPUSCULAR HEMOGLOBIN 32.2 pg (27.0-31.0); MEAN CORPUSCULAR HGB CONC 30.9 g/dL (32.0-36.0); MEAN CORPUSCULAR VOLUME 104.2 fL (81.0-99.0); MEAN PLATELET VOLUME 9.7 fL (7.9-10.8); MONOCYTES # (AUTO) 0.5 10^3/uL (0.0-1.0); MONOCYTES % (AUTO) 8.6 %; NEUTROPHILS # (AUTO) 3.9 10^3/uL (1.5-6.6); NEUTROPHILS % (AUTO) 64.4 %; PLT - PLATELET COUNT 181 10^3/uL (130-450); RED BLOOD COUNT 3.32 10^6/uL (4.20-5.40); WHITE BLOOD COUNT 6.1 x10^3/uL (4.8-10.8)
[2024-04-07 20:04] LABS: ALBUMIN/GLOBULIN RATIO 1.5 (1.0-2.2); BILIRUBIN,TOTAL 0.4 mg/dL (0.2-1.0); CALCIUM 9.4 mg/dL (8.5-10.3); CREATININE 1.2 mg/dL (0.6-1.3); POTASSIUM 4.4 mmol/L (3.5-4.5); TOTAL PROTEIN 6.7 g/dL (6.4-8.9)
[2024-04-07 20:30] LABS: BILIRUBIN,URINE NEGATIVE (NEGATIVE); GLUCOSE, URINE (UA) NEGATIVE (NEGATIVE); KETONES,URINE (UA) TRACE mg/dL (NEGATIVE); LEUKOCYTE ESTERASE, URINE SMALL (NEGATIVE); NITRITE,URINE NEGATIVE (NEGATIVE); OCCULT BLOOD,URINE NEGATIVE (NEGATIVE); PROTEIN,URINE TRACE mg/dL (NEGATIVE); UROBILINOGEN,URINE 0.2 (NORMAL) E.U./dL (NORMAL)
[2024-04-07 20:36] LABS: CLARITY,URINE HAZY (CLEAR)
[2024-04-07 20:50] VITALS: BP 201/94; O2SAT 99
[2024-04-07 21:02] LABS: BACTERIA,URINE Few /HPF (None Seen); RBC,URINE 0-5 /HPF (0-5); SQUAMOUS EPITHELIAL CELL,UR FEW Squamous (<= Few)
[2024-04-07] MEDS: CARBIDOPA/LEVODOPA 25 MG/100 MG TABLET PO SCH (21:07)
== END 2024-04-07 21:15 | disposition home or self-care (01) ==
LOC: EDUNIT# → ED 18:49
DX: R10.84 Generalized abdominal pain (principal)
CPT/HCPCS: 36415; 80053; 81001; 83605; 83690; 84484; 85025; 87086; 93005; 99283; 99284; A9270; 81003

== ENCOUNTER 2024-04-08 00:39 | Outpatient (CLI) | payer MEDICARE | END 2024-04-08 23:59 | disposition critical access hospital (66) | LOC: EMS 00:39 | DX: R10.33 Periumbilical pain (principal); R11.2 Nausea with vomiting, unspecified | CPT/HCPCS: A0425; A0427 ==

== ENCOUNTER 2024-04-08 01:03 | Inpatient (IN) | payer MEDICARE ==
[2024-04-08] MEDS: ONDANSETRON 4 MG/2 ML VIAL IVP STA (03:34)
[2024-04-08] MEDS: fentaNYL 100 MCG/2 ML VIAL IVP STA ×2 (03:36→06:43)
[2024-04-08] MEDS: cefTRIAXone 1 GM VIAL IVP STA (05:53)
[2024-04-08] MEDS: metroNIDAZOLE 500 MG/100 ML 500 MG/100 ML BAG IV SCH (05:58)
--- NOTE | 2024-04-08 06:24 | ED Physician Documentation ---
History of Present Illness - Stated complaint Stated Complaint: ABD PAIN - Chief complaint Chief Complaint: Abd Pain - Additonal information Additional information: 83-year-old female presents to the emergency department with chief complaint abdominal pain. Seen here earlier this evening for abdominal pain that began acutely after meal. Pain subsided shortly after arrival to the emergency department. Patient had a relatively reassuring labs and refused CT scan at that time. Returns after getting home stating that the pain began again almost immediately. It was associated with nausea. Denies past medical significant for Parkinson's disease on carbidopa levodopa. Review of Systems Constitutional: denies: Fever Eyes: denies: Loss of vision Ears: denies: Loss of hearing Nose: denies: Rhinorrhea / runny nose Throat: denies: Dental pain / toothache Cardiac: denies: Chest pain / pressure Respiratory: denies: Dyspnea GI: reports: Abdominal Pain, Nausea, Vomiting : denies: Dysuria Skin: denies: Rash Musculoskeletal: denies: Neck pain, Extremity swelling Neurologic: denies: Generalized weakness Psychiatric: denies: Depressed Endocrine: denies: Polydypsia PD PAST MEDICAL HISTORY - Past Medical History Past Medical History: Yes Cardiovascular: None Respiratory: Pneumonia Endocrine/Autoimmune: Other GI: GERD, Hiatal hernia, Diverticulitis : None HEENT: None Psych: Anxiety Derm: None - Past Surgical History Past Surgical History: No HEENT: Cataracts, Tonsil/Adenoidectomy - Present Medications Home Medications: Ambulatory Orders Medication Instructions Recorded Confirmed Carbidopa/Levodopa [Carbidopa-Levo 1 tab PO 2230 07/04/17 08/30/17 ER 25-100 Tab] Carbidopa/Levodopa 1.5 tab PO 0700,1500 07/04/17 08/30/17 [Carbidopa-Levodopa 25-100 Tab] Cetirizine [ZyrTEC] 10 mg PO DAILY PRN 07/04/17 08/30/17 Omeprazole [PriLOSEC] 20 mg PO DAILY PRN 07/04/17 08/30/17 Carbidopa/Levodopa 2 tab PO 1100,1900 08/30/17 08/30/17 [Carbidopa-Levodopa 25-100 Tab] carvediloL [Coreg] 3.125 mg PO BID #60 tablet 08/31/17 - Allergies Allergies/Adverse Reactions: Allergies Allergy/AdvReac Type Severity Reaction Status Date / Time selegiline Allergy Severe Unknown Verified 04/07/24 18:56 dicyclomine [From Bentyl] Allergy Unknown Verified 04/07/24 18:56 iodine Allergy Hives Verified 04/07/24 18:56 tramadol Allergy Unknown Verified 04/07/24 18:56 - Social History Does the pt smoke?: No Smoking Status: Never smoker Does the pt drink ETOH?: No Does the pt have substance abuse?: No - Immunizations Immunizations are current?: Yes - POLST Patient has POLST: No PD ED PE NORMAL - General General: Alert and oriented X 3, No acute distress, Well developed/nourished - HEENT HEENT: Atraumatic, PERRL, EOMI, Ears normal, Moist mucous membranes - Neck Neck: Supple, no meningeal sign - Cardiac Cardiac: RRR - Respiratory Respiratory: No respiratory distress - Abdomen Abdomen: Other (Diffuse tenderness without guarding). No: Non tender Results - Vitals Vitals: Vital Signs - 24 hr 04/08/24 04/08/24 04/08/24 01:46 02:09 04:46 Temperature 36.4 C L Heart Rate 81 81 84 Respiratory 16 18 18 Rate Blood Pressure 173/84 H 182/89 H 176/70 H O2 Saturation 96 99 97 04/08/24 04/08/24 06:01 06:55 Temperature Heart Rate 81 78 Respiratory 16 18 Rate Blood Pressure 146/53 H 152/73 H O2 Saturation 96 99 Oxygen O2 Source Room air - Labs Labs: Laboratory Tests 04/08/24 04/08/24 04/08/24 06:20 06:20 06:20 WBC 8.3 RBC 3.17 L Hgb 10.6 L Hct 32.2 L MCV 101.6 H MCH 33.4 H MCHC 32.9 RDW 13.1 Plt Count 178 MPV 9.6 Neut # (Auto) 6.0 Lymph # (Auto) 1.4 L [place] # (Auto) 0.7 Eos # (Auto) 0.2 Baso # (Auto) 0.0 Absolute Nucleated RBC 0.00 Nucleated RBC % 0.0 Sodium 137 Potassium 4.4 Chloride 104 Carbon Dioxide 29 Anion Gap 4.0 L BUN 33 H Creatinine 1.2 Estimated GFR (MDRD) 43 L Glucose 121 H Lactic Acid 1.0 Calcium 10.0 Total Bilirubin 0.4 AST 17 ALT 6 L Alkaline Phosphatase 39 L Total Protein 6.5 Albumin 3.8 Globulin 2.7 Albumin/Globulin Ratio 1.4 Lipase 22 PD Medical Decision Making - ED course Complexity details: reviewed results, re-evaluated patient, considered differential, d/w patient, d/w end user consultant ED course: 83-year-old returns to the emergency department with ongoing abdominal pain. Noncontrast CT imaging obtained demonstrates diffuse inflammatory changes without clear abscess or perforation. Repeat a.m. labs are reassuring. No significant leukocytosis or lactic acidosis. Nevertheless patient requiring regular doses medication for pain control. Started Rocephin and Flagyl. Discussed with surgical service who will consult on patient. Will be signing out to the oncoming physician, please see their documentation for further detail. Departure - Departure Forms: PCP List
[2024-04-08 06:27] LABS: BASOPHILS % (AUTO) 0.2 %; EOSINOPHILS # (AUTO) 0.2 10^3/uL (0.0-0.7); EOSINOPHILS % (AUTO) 1.9 %; HCT - HEMATOCRIT 32.2 % (37.0-47.0); HGB - HEMOGLOBIN 10.6 g/dL (12.0-16.0); LYMPHOCYTES # (AUTO) 1.4 10^3/uL (1.5-3.5); MEAN CORPUSCULAR HEMOGLOBIN 33.4 pg (27.0-31.0); MEAN CORPUSCULAR HGB CONC 32.9 g/dL (32.0-36.0); MEAN CORPUSCULAR VOLUME 101.6 fL (81.0-99.0); MEAN PLATELET VOLUME 9.6 fL (7.9-10.8); MONOCYTES # (AUTO) 0.7 10^3/uL (0.0-1.0); MONOCYTES % (AUTO) 8.6 %; NEUTROPHILS % (AUTO) 72.1 %; PLT - PLATELET COUNT 178 10^3/uL (130-450); RED BLOOD COUNT 3.17 10^6/uL (4.20-5.40); RED CELL DISTRIBUTION WIDTH 13.1 % (12.0-15.0); WHITE BLOOD COUNT 8.3 x10^3/uL (4.8-10.8)
[2024-04-08 06:47] LABS: ALBUMIN 3.8 g/dL (3.2-5.5); ALBUMIN/GLOBULIN RATIO 1.4 (1.0-2.2); BILIRUBIN,TOTAL 0.4 mg/dL (0.2-1.0); CREATININE 1.2 mg/dL (0.6-1.3); POTASSIUM 4.4 mmol/L (3.5-4.5); TOTAL PROTEIN 6.5 g/dL (6.4-8.9)
--- NOTE | 2024-04-08 07:45 | CONSULTATION NOTE ---
Surgery Consult - Consult Date Consult Date: 04/07/24 Requesting Provider: Dr Leo - Home Meds/Allergies Home Medications: Patient History Medication Instructions Recorded Confirmed Carbidopa/Levodopa [Carbidopa-Levo 1 tab PO 2230 07/04/17 08/30/17 ER 25-100 Tab] Carbidopa/Levodopa 1.5 tab PO 0700,1500 07/04/17 08/30/17 [Carbidopa-Levodopa 25-100 Tab] Cetirizine [ZyrTEC] 10 mg PO DAILY PRN 07/04/17 08/30/17 Omeprazole [PriLOSEC] 20 mg PO DAILY PRN 07/04/17 08/30/17 Carbidopa/Levodopa 2 tab PO 1100,1900 08/30/17 08/30/17 [Carbidopa-Levodopa 25-100 Tab] Allergies/Adverse Reactions: Allergies Allergy/AdvReac Type Severity Reaction Status Date / Time selegiline Allergy Severe Unknown Verified 04/07/24 18:56 dicyclomine [From Bentyl] Allergy Unknown Verified 04/07/24 18:56 iodine Allergy Hives Verified 04/07/24 18:56 tramadol Allergy Unknown Verified 04/07/24 18:56 - Vital Signs Vital Signs: Last Vital Signs Temp 97.5 F L 04/08/24 01:46 Pulse 78 04/08/24 06:55 Resp 18 04/08/24 06:55 BP 152/73 H 04/08/24 06:55 Pulse Ox 99 04/08/24 06:55 O2 Flow Rate Intake & Output: Intake & Output 04/05/24 04/06/24 04/07/24 04/08/24 23:59 23:59 23:59 23:59 Intake Total 100 Balance 100 - Lab Results Result Diagrams: 04/08/24 06:20 04/08/24 06:20 - Consultation Note Consultation Note: General Surgery Consultation Note Assessment: 1) Abdominal pain, etiology unknown. Possible early diverticulitis given the inflammation mentioned on CT and her clinical presentation. Without oral contrast, a definitive CT diagnosis is not possible. There is no clinical, lab, or image evidence of ischemic bowel, bowel obstruction, or an acute intra- abdominal catastrophe Recommendation: 1) NPO 2) IV antibiotics 3) Analgesics. My want to consider low dose Ketorolac 4) Patient's family would like her transferred to [place] as that is where her primary care team is located. I explained to them that there is no indication for immediate surgery and that efforts will be made to transfer her as per their request. <><><><><><><><><><> Reason for Consultation Abdominal pain Chief Complaint Abdominal pain HPI 83 female with a history of diverticulosis and diverticulitis presents with 14 hours of bilateral lower abdominal cramping discomfort associated with one ep isode of emesis after eating her evening meal. She was brought to the ED but her symptoms had resolved and so she went back home. Her symptoms recurred and she returned to the ED where a CT (non-contrast) was performed and revealed "inflammation" in the LLQ. The patient was started on IV antibiotics with the intent to admit her to the Medical Hospitalist Service and I was asked to assist in her evaluation and management. During my encounter with the patient, she was awake, cooperative and co mfortable. She complained of bilateral hypogastric cramping abdominal pain that was less than earlier today. She denies fevers or chills and has had no further emesis. She claims to have had normal bowel motions for the 5 days prior to her pain episode. She can not remember when she had her last colonoscopy. Past Medical History - Parkinson's; diverticulosis/diverticulitis; HTN Past Surgical History - No abdominal surgery Family History - No colon cancer or colitis Social History - Lives alone at home Current Medications See "Medication" section Allergies See "Allergy" section ROS Pertinent positives Vomiting x 1; Lower abdominal pain All other reviewed systems negative Physical Examination Vital Signs: See "Vital Signs" section BMI: 25 GENERAL APPEARANCE: Normal development, normal body habitus, normal grooming PSYCHIATRIC: AAO; Comfortable; Cooperative; In NAD EYES: Pupils equal, round and reactive to light, sclera anicteric EARS, NOSE, MOUTH, THROAT: Hearing normal, Oral mucous membranes moist and without lesions; NECK: No crepitus, lymphadenopathy, or thyromegaly LUNGS: Clear to auscultation without wheezing; No use of accessory muscles to breathe CARDIOVASCULAR: Heart-NSR without murmurs; Palpable carotid arteries - no bruits; Peripheral edema absent ABD: Soft, not distended, no palpable masses, mo peritoneal signs, Minimal discomfort in the LLQ LYMPHATIC: Neck, Axillae, Groin no palpable adenopathy EXTREMITIES: No clubbing, cyanosis, infections SKIN: Anicteric; No rashes, lesions, Ulcerations Labs WBC normal; Lactate WNL Antibiotics: Ceftriaxone/Flagyl Imaging CT Abdomen - official results pending - no free air, minimal pelvic fluid, possible LLQ inflammation although without contrast I am unable to make a definitive diagnosis All images were personally reviewed by me for this encounter. Heladio Boykin MD, [facility] General Surgery Service [phone]
--- NOTE | 2024-04-08 08:06 | ED Physician Documentation ---
ED Addendum - Addendum Addendum: 04/08/24 08:04 The patient was signed out to me by Dr. Leo, please see his note for full H&P on this patient. The patient appears to have diverticulitis on CT scan, Dr. Boykin, general surgery came and consulted on the patient, does not feel that the patient requires any surgical interventions at this time. Recommends admission to the hospitalist service with IV antibiotics. The family requested transfer to [facility] as that is where her primary care provider and revenue research analyst are. I did contact [facility] in [place], they are at 113% bed capacity, boarding in the emergency department and have approximately a 24-hour wait in their ER currently. The family then requested that I contact the [facility]. The [facility] is on [place] critical patients only. Therefore the patient will be admitted to the hospital here for IV antibiotics. Discussed the case with the hospitalist who accepts. This document was made in part using voice recognition software. While efforts are made to proofread this document, sound alike and grammatical errors may occur. Departure - Departure Disposition: [facility] DC/[place] Clinical Impression: Diverticulitis Condition: Stable Discharge Date/Time: 04/08/24 11:26
[2024-04-08] MEDS: fentaNYL 100 MCG/2 ML VIAL IV PRN (08:45)
--- NOTE | 2024-04-08 09:35 | CT Report ---
PROCEDURE: Abdomen/Pelvis WO INDICATIONS: Abdominal pain,Contrast allergy TECHNIQUE: A CT scan of the abdomen and pelvis was performed without the use of intravenous contrast. Images we re recorded and evaluated at appropriate window settings. Reformats: coronal and sagittal. For radiat ion dose reduction, the following was used: automated exposure control, adjustment of mA and/or kV ac cording to patient size. COMPARISON: None. FINDINGS: Image quality: Suboptimal due to motion artifact and lack of intravenous contrast.. Lower chest: Trace groundglass in the right lower lobe, probably post infectious/inflammatory. Large hiatal hernia. Liver: No contour-deforming mass. Gallbladder: Gallbladder sludge versus small stones. No wall thickening. Biliary tree: No intrahepatic or extrahepatic dilation, accounting for age. Spleen: No splenomegaly. Pancreas: No pancreatic ductal dilation. Adrenals: No adrenal nodule. Mild nodular thickening of the adrenal glands. Kidneys and ureters: No hydronephrosis. No contour-deforming mass. Atrophy of the right kidney with h ypertrophy of the left kidney. Stomach, bowel and peritoneum: Significant inflammatory changes in the left upper quadrant, with exte nsive mesenteric edema and small volume free fluid. Mild dilation of the small bowel, without a disce rnible transition point. Mild equalization of the small bowel. Lymph nodes: No central or retroperitoneal adenopathy. Vessels: No infrarenal aortic aneurysm. Reproductive organs: Unremarkable. Bladder: Bladder wall thickness is normal, accounting for underdistention. No calcified bladder stone s. Pelvic lymph nodes: No adenopathy by size criteria. Bones: No aggressive osseous abnormality. Osteoporosis by Hounsfield units criteria. Compression defo rmities of the L4, L3 and L1 vertebral bodies. Degenerative disc disease, predominantly of the lumbar spine. Other: Small umbilical hernia containing fat. IMPRESSION: Extensive inflammatory changes in the left upper quadrant, with mesenteric edema and small volume marga e fluid. Mild dilation of the small bowel, without discernible transition point. Differential include s enteritis versus early or low-grade bowel obstruction. Other chronic findings as above. Findings are concordant with preliminary interpretation provided by [facility]. Reviewed by: Merrill Candelaria MD on 04/08/2024 8:33 AM MARIANO Approved by: Merrill Candelaria MD on 04/08/2024 8:33 AM AKDT Station ID: [id number]
[2024-04-08] MEDS ORDERED: HYDROmorphone 0.5 MG/0.5 ML SYRINGE IVP PRN (10:37)
[2024-04-08] MEDS ORDERED: ONDANSETRON ODT 4 MG TABLET TL PRN (10:37)
[2024-04-08] MEDS ORDERED: ONDANSETRON 4 MG/2 ML VIAL IVP PRN (10:37)
[2024-04-08] MEDS ORDERED: HYDROcod/ACETAM 5/325 MG TABLET PO PRN (10:37)
[2024-04-08] MEDS ORDERED: SODIUM CHLORIDE FLUSH 0.9% 10 ML SYRINGE IVP PRN (10:37)
--- NOTE | 2024-04-08 11:10 | HISTORY & PHYSICAL EXAMINATION ---
Chief Complaint - Chief Complaint Chief Complaint: Abdominal pain History of Present Illness - History of Present Illness HPI Comment/Other: Patient is an 83-year-old female with a past medical history of Parkinson's disease with labile blood pressures, hyperlipidemia who presented to the ED due to complaints of abdominal pain. A CT abdomen/pelvis was performed which revealed inflammation in the left lower quadrant. Patient was started on IV antibiotics with ceftriaxone and metronidazole. During my evaluation, patient complained of a bandlike mid abdominal pain sensation. She denied any fever or chills. She was eval by general surgery who recommended medical management. Family did request transfer to [facility] however they did not have any beds available. Patient has no prior surgical history. Cannot recall if she has had a colonoscopy in the past. Patient is DNR. History - Past Medical History Cardiovascular: reports: None Respiratory: reports: Pneumonia Endocrine/Autoimmune: reports: Other GI: reports: GERD, Hiatal hernia, Diverticulitis : reports: None HEENT: reports: None Psych: reports: Anxiety Derm: reports: None MRSA Hx?: No - Past Surgical History HEENT: reports: Cataracts, Tonsil/Adenoidectomy - POLST Patient has POLST: No Meds/Allgy - Home Medications Home Medications: Ambulatory Orders Medication Instructions Recorded Confirmed Carbidopa/Levodopa [Carbidopa-Levo 1 tab PO 2230 07/04/17 08/30/17 ER 25-100 Tab] Carbidopa/Levodopa 1.5 tab PO 0700,1500 07/04/17 08/30/17 [Carbidopa-Levodopa 25-100 Tab] Carbidopa/Levodopa 2 tab PO 1100,1900 08/30/17 08/30/17 [Carbidopa-Levodopa 25-100 Tab] carvediloL [Coreg] 3.125 mg PO BID #60 tablet 08/31/17 Opicapone [Ongentys] 50 mg PO DAILY 04/08/24 04/08/24 Rosuvastatin Calcium 5 mg PO 04/08/24 - Allergies Allergies/Adverse Reactions: Allergies Allergy/AdvReac Type Severity Reaction Status Date / Time selegiline Allergy Severe Unknown Verified 04/07/24 18:56 dicyclomine [From Bentyl] Allergy Unknown Verified 04/07/24 18:56 iodine Allergy Hives Verified 04/07/24 18:56 tramadol Allergy Unknown Verified 04/07/24 18:56 Review of Systems - Constitutional Constitutional: denies: Fatigue, Fever, Chills - Cardiovascular Cariovascular: denies: Irregular heart rate, Palpitations, Chest pain - Gastrointestinal Gastrointestinal: reports: Abdominal pain, Constipation. denies: Nausea, Vomiting - All Other Systems All Other Systems: reports: Reviewed and negative Exam - Vital Signs Vital Signs: Vital Signs x48h Temp Pulse Resp BP Pulse Ox 04/08/24 10:00 86 16 129/76 99 04/08/24 08:00 36.5 C 80 16 154/72 H 99 04/08/24 06:55 78 18 152/73 H 99 04/08/24 06:01 81 16 146/53 H 96 04/08/24 04:46 84 18 176/70 H 97 - Physical Exam General Appearance: positive: No acute distress, Alert Respiratory: positive: Chest non-tender, No respiratory distress, Breath sounds nml Cardiovascular: positive: Regular rate & rhythm, No murmur, No gallop Abdomen: positive: No organomegaly, Nml bowel sounds, No distention, Tenderness (Tenderness to palpation across upper abdomen. Soft.) Conclusion/Plan - Problem List (1) Diverticulitis Conclusion/Plan: --CT abdomen/pelvis showing extensive inflammatory changes in the left upper quadrant with mesenteric edema concerning for enteritis versus early or low- grade bowel obstruction. --Patient was eval by general surgery who recommended medical management and maintain the patient n.p.o. --She will be started on IV Zosyn empirically. --Blood and stool cultures have been ordered. --Continue IV fluids. (2) Parkinsons disease Conclusion/Plan: --Patient follows with neurology and cardiology at [facility]. Will continue her on her carbidopa levodopa and opicapone. -- She does have labile blood pressures due to her Parkinson's disorder. (3) Hypertension Conclusion/Plan: --Continue carvedilol. - Lab Results Fish Bones: 04/08/24 06:20 04/08/24 06:20
[2024-04-08] MEDS: SODIUM CHLORIDE 0.9% 1,000 ML IV SCH (11:30)
[2024-04-08] MEDS: PIPERACILLIN/TAZOBACTAM 3.375 GM in SODIUM CHLORIDE 0.9% MINIBAG 100 ML IV SCH (11:38)
--- NOTE | 2024-04-08 16:04 | PHARMACY PROGRESS NOTE ---
- Best Possible Medication History Admit Date and Time: 04/08/24 1037 Processed by: Pharmacy Medications reviewed in ED?: No Medication History completed: Yes Patient Interview: Completed Secondary Source(s): Physician records (Medication Reconciliation completed by [employer]), Insurance records As the person ultimately responsible for medication therapy, providers are able to order a medication from an existing home medication list in [facility] via the "Reconcile Routine" prior to Confirmation of that medication by unit support representative. Such practice is discouraged except when the physician, in their clinical judgment, deems that a medical need exists for a medication without regard to previous use.
[2024-04-08] MEDS: SODIUM CHLORIDE FLUSH 0.9% 10 ML SYRINGE IVP SCH (16:55)
[2024-04-08] MEDS: CARBIDOPA/LEVODOPA 25 MG/100 MG TABLET PO SCH (17:13)
[2024-04-08] MEDS ORDERED: ROSUVASTATIN CALCIUM 5 MG PO SCH (21:00)
[2024-04-08] MEDS: ATORVASTATIN 10 MG TABLET PO SCH (21:45)
[2024-04-08] MEDS: ACETAMINOPHEN 325 MG TABLET PO PRN (21:45)
[2024-04-08] MEDS: LOSARTAN 50 MG TABLET PO SCH (21:45)
[2024-04-08] MEDS: carvediloL 3.125 MG TABLET PO SCH (21:50)
[2024-04-08] MEDS: OPICAPONE 50 MG PO SCH (21:50)
[2024-04-09] MEDS: diazePAM INJ 5 MG/ML SYRINGE IVP ONE (04:27)
--- NOTE | 2024-04-09 06:07 | PROVIDER PROGRESS NOTE ---
Wafer Cutter Note - Wafer Cutter Note Wafer Cutter Note: RN paged "Pt in for diverticulitis. Pt currently sundowning, highly confused and combative, pt refusing care and actively throwing punches and attempting to bite nurse aids performing a bladder scan while trying to get out of bed. Pt now in soft restraints for pt's own safety." initiation of new restraints: tele medicine team cannot initiate new restraints due regulation. day team will need to followup and provide orders. Xiang Coleman
[2024-04-09 06:14] LABS: BASOPHILS % (AUTO) 0.8 %; EOSINOPHILS # (AUTO) 0.3 10^3/uL (0.0-0.7); EOSINOPHILS % (AUTO) 5.1 %; HCT - HEMATOCRIT 28.6 % (37.0-47.0); HGB - HEMOGLOBIN 9.1 g/dL (12.0-16.0); LYMPHOCYTES % (AUTO) 18.6 %; MEAN CORPUSCULAR HEMOGLOBIN 32.9 pg (27.0-31.0); MEAN CORPUSCULAR HGB CONC 31.8 g/dL (32.0-36.0); MEAN CORPUSCULAR VOLUME 103.2 fL (81.0-99.0); MEAN PLATELET VOLUME 9.7 fL (7.9-10.8); MONOCYTES # (AUTO) 0.6 10^3/uL (0.0-1.0); MONOCYTES % (AUTO) 11.8 %; NEUTROPHILS # (AUTO) 3.4 10^3/uL (1.5-6.6); NEUTROPHILS % (AUTO) 63.5 %; PLT - PLATELET COUNT 158 10^3/uL (130-450); RED BLOOD COUNT 2.77 10^6/uL (4.20-5.40); WHITE BLOOD COUNT 5.3 x10^3/uL (4.8-10.8)
[2024-04-09 06:32] LABS: CALCIUM 8.6 mg/dL (8.5-10.3); CREATININE 1.2 mg/dL (0.6-1.3); POTASSIUM 3.8 mmol/L (3.5-4.5)
[2024-04-09] MEDS: LOSARTAN 50 MG TABLET PO PRN (07:55)
[2024-04-09] MEDS ORDERED: ZINC OXIDE 20% OINT 30 GM TUBE TOP PRN (08:27)
[2024-04-09] MEDS ORDERED: CARBIDOPA/LEVODOPA 25 MG/100 MG TABLET PO SCH (09:00)
[2024-04-09] MEDS: ASPIRIN EC 81 MG TABLET PO SCH (09:24)
[2024-04-09] MEDS: ENOXAPARIN 40 MG/0.4 ML SYRINGE SUBQ SCH (09:25)
[2024-04-09] MEDS ORDERED: ACETAMINOPHEN 500 MG TABLET PO PRN (10:24)
[2024-04-09] MEDS ORDERED: NON FORMULARY MED (Melatonin [Melatonin] 3 MG Tablet) PO PRN (10:24)
[2024-04-09] MEDS ORDERED: HALOPERIDOL 5 MG/ML VIAL IM PRN (10:35)
--- NOTE | 2024-04-09 13:48 | PROVIDER PROGRESS NOTE ---
Subjective - Prog Note Date Prog Note Date: 04/09/24 Prog Note Time: 13:45 - Subjective Pt reports feeling: Improved Subjective: The patient is an 83-year-old female who has known Parkinson's disease. She was admitted to the hospital with acute diverticulitis. She has been receiving IV antibiotics and is slowly improving. Last night the patient became quite confused and combative and was temporarily placed in restraints by the night physician. This morning the patient is feeling much better. She is alert and oriented and back to her normal self. Her daughter is at the bedside. The patient states she is feeling better and would like to go home. She has been n.p.o. and I told her I would like her to stay today and advance her diet and she is agreeable. She denies fever or shaking chills. No chest pain or heart palpitations. No nausea or vomiting. She has a little bit of discomfort in her left lower abdomen but it is improving. She has not yet had a bowel movement. No urinary complaint Current Medications - Current Medications Current Medications: Tylenol 650 mg p.o. every 4 hours as needed Hydrocodone 5/325 mg 1 p.o. every 4 hours as needed moderate pain Aspirin 81 mg daily Atorvastatin 10 mg daily Sinemet 25/100 mg 1 p.o. 6 times daily Carvedilol 3.125 mg p.o. twice daily Vitamin D3 5000 units daily Lovenox 40 mg subcu daily Fentanyl 25 mcg IV every 2 hours as needed severe pain Cozaar 25 mg daily Objective - Vital Signs/Intake & Output Vital Signs: Vital Signs x48h Temp Pulse Resp BP Pulse Ox 04/09/24 07:44 37.4 C 96 12 167/93 H 92 Intake & Output: Intake & Output 04/06/24 04/07/24 04/08/24 04/09/24 23:59 23:59 23:59 23:59 Intake Total 1726.667 220 Output Total 525 Balance 1726.667 305 - Objective General Appearance: positive: No acute distress Eyes Bilateral: positive: Normal inspection ENT: positive: ENT inspection nml Neck: positive: Nml inspection Respiratory: positive: Chest non-tender, No respiratory distress, Breath sounds nml Cardiovascular: positive: Regular rate & rhythm, No murmur, No gallop. negative: Friction rub Abdomen: positive: Nml bowel sounds, Tenderness (She still has tenderness to palpation with some guarding in the left lower quadrant.), Guarding. negative: Rebound Skin: positive: Color nml, No rash, Warm, Dry Extremities: positive: Non-tender Neurologic/Psychiatric: positive: Oriented x3, CN's nml (2-12) - Lab Results Fish Bones: 04/09/24 05:45 04/09/24 05:45 Other Labs: Lab Results x24hrs 04/09/24 04/09/24 Range/Units 05:45 05:45 WBC 5.3 (4.8-10.8) x10^3/uL RBC 2.77 L (4.20-5.40) 10^6/uL Hgb 9.1 L (12.0-16.0) g/dL Hct 28.6 L (37.0-47.0) % MCV 103.2 H (81.0-99.0) fL MCH 32.9 H (27.0-31.0) pg MCHC 31.8 L (32.0-36.0) g/dL RDW 13.0 (12.0-15.0) % Plt Count 158 (130-450) 10^3/uL MPV 9.7 (7.9-10.8) fL Neut # (Auto) 3.4 (1.5-6.6) 10^3/uL Lymph # (Auto) 1.0 L (1.5-3.5) 10^3/uL [place] # (Auto) 0.6 (0.0-1.0) 10^3/uL Eos # (Auto) 0.3 (0.0-0.7) 10^3/uL Baso # (Auto) 0.0 (0.0-0.1) 10^3/uL Absolute Nucleated RBC 0.00 x10^3/uL Nucleated RBC % 0.0 /100WBC Sodium 138 (135-145) mmol/L Potassium 3.8 (3.5-4.5) mmol/L Chloride 109 (101-111) mmol/L Carbon Dioxide 26 (21-32) mmol/L Anion Gap 3.0 L (6-13) BUN 22 H (6-20) mg/dL Creatinine 1.2 (0.6-1.3) mg/dL Estimated GFR (MDRD) 43 L (>89) Glucose 93 (74-104) mg/dL Calcium 8.6 (8.5-10.3) mg/dL ABX Reporting Has patient been on IV antibiotics over the past 48 hours?: Yes Sepsis Event Note (H) - Evaluation Current Stage of Sepsis: Ruled out Assessment/Plan - Problem List (1) Diverticulitis Impression: The patient was initially started on IV ceftriaxone and Flagyl. Yesterday she was transitioned to IV Zosyn. She is feeling much better today. Will place her on a full liquid diet today and slowly advance her to a soft GI diet. She has pain medications available as needed. 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 She was combative and extremely agitated. She likely has some early Parkinson's dementia. At bedtime tonight we will give her a dose of Seroquel. She will have IV Haldol available as needed for severe agitation. (3) Parkinsons disease Impression: Continue home dose of Sinemet. (4) Paroxysmal atrial fibrillation Impression: Currently in a sinus rhythm. 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 Continue to monitor closely (7) Anemia Impression: The patient has a macrocytic anemia. Will add a folate and vitamin B12 onto her labs tomorrow morning. (8) Ambulatory dysfunction Impression: Due to her Parkinson's disease. Will have physical therapy evaluate the patient and make sure she can safely ambulate prior to discharge Disposition: Inpatient hospitalization remains necessary. The patient needs continued IV Zosyn for her acute diverticulitis. We need to be able to success fully advance her diet prior to discharge. I am hopeful that she will get out of the hospital in the next 24 to 48 hours. Time spent: 35 minutes
[2024-04-09] MEDS ORDERED: traZODone 50 MG TABLET PO SCH (21:00)
[2024-04-09] MEDS ORDERED: CARBOXYMETHYLCELLULOSE SODIUM EACHEYE SCH (21:00)
[2024-04-09] MEDS ORDERED: QUEtiapine 100 MG TABLET PO SCH ×2 (21:00)
[2024-04-09] MEDS: QUEtiapine 100 MG TABLET PO SCH (21:07)
[2024-04-09] MEDS ORDERED: SODIUM CHLORIDE 0.9% 500 ML IV ONE (22:57)
[2024-04-10 06:51] LABS: CALCIUM 8.6 mg/dL (8.5-10.3); CREATININE 1.1 mg/dL (0.6-1.3); MAGNESIUM 1.9 mg/dL (1.7-2.3); POTASSIUM 3.7 mmol/L (3.5-4.5)
[2024-04-10 06:59] LABS: BASOPHILS # (AUTO) 0.1 10^3/uL (0.0-0.1); BASOPHILS % (AUTO) 1.1 %; EOSINOPHILS # (AUTO) 0.4 10^3/uL (0.0-0.7); EOSINOPHILS % (AUTO) 7.7 %; HCT - HEMATOCRIT 29.5 % (37.0-47.0); HGB - HEMOGLOBIN 9.5 g/dL (12.0-16.0); LYMPHOCYTES # (AUTO) 1.6 10^3/uL (1.5-3.5); LYMPHOCYTES % (AUTO) 34.7 %; MEAN CORPUSCULAR HEMOGLOBIN 33.1 pg (27.0-31.0); MEAN CORPUSCULAR HGB CONC 32.2 g/dL (32.0-36.0); MEAN CORPUSCULAR VOLUME 102.8 fL (81.0-99.0); MEAN PLATELET VOLUME 9.7 fL (7.9-10.8); MONOCYTES # (AUTO) 0.5 10^3/uL (0.0-1.0); MONOCYTES % (AUTO) 11.5 %; NEUTROPHILS % (AUTO) 44.8 %; PLT - PLATELET COUNT 161 10^3/uL (130-450); RED BLOOD COUNT 2.87 10^6/uL (4.20-5.40); WHITE BLOOD COUNT 4.5 x10^3/uL (4.8-10.8)
[2024-04-10 08:26] VITALS: BP 159/87; O2SAT 94
[2024-04-10] MEDS ORDERED: UBIDECARENONE 100 MG PO SCH (09:00)
--- NOTE | 2024-04-10 09:01 | PROVIDER PROGRESS NOTE ---
Subjective - Prog Note Date Prog Note Date: 04/10/24 Prog Note Time: 09:00 - Subjective Pt reports feeling: Improved Subjective: The patient is resting in her bed with her daughter at the bedside. She states that she is feeling a little bit better than yesterday. She tolerated her full liquid diet. We discussed giving her a low residue diet at lunchtime with possible consideration for discharge this afternoon or possibly tomorrow morning depending on how she does. The patient and her daughter are agreeable. She denies fever or shaking chills. No chest pain, shortness of breath or cough. No nausea or vomiting. She has only minor abdominal pain at this point. She has not yet had a bowel movement. No urinary Current Medications - Current Medications Current Medications: Tylenol 650 mg p.o. every 4 hours as needed Hydrocodone 5/325 mg 1 p.o. every 4 hours as needed moderate pain Aspirin 81 mg daily Atorvastatin 10 mg daily Sinemet 25/100 mg 1 p.o. 6 times daily Carvedilol 3.125 mg p.o. twice daily Vitamin D3 5000 units daily Lovenox 40 mg subcu daily Fentanyl 25 mcg IV every 2 hours as needed severe pain Cozaar 25 mg daily Zosyn 3.375 IV every 6 hours Objective - Vital Signs/Intake & Output Reviewed Vital Signs: Yes Vital Signs: Vital Signs x48h Temp Pulse Resp BP BP Pulse Ox 04/10/24 08:00 37.2 C 86 16 159/87 H 94 04/10/24 04:18 36.6 C 84 16 175/95 H 96 Intake & Output: Intake & Output 04/07/24 04/08/24 04/09/24 04/10/24 23:59 23:59 23:59 23:59 Intake Total 1726.667 930 100 Output Total 525 1000 Balance 1726.667 405 900 - Objective General Appearance: positive: No acute distress, Alert Eyes Bilateral: positive: Normal inspection ENT: positive: ENT inspection nml Neck: positive: Nml inspection Respiratory: positive: Chest non-tender, No respiratory distress, Breath sounds nml Cardiovascular: positive: Regular rate & rhythm, No murmur, No gallop, Gallop/S4. negative: Friction rub Abdomen: positive: Non-tender, Tenderness (Only mild tenderness to palpation in the left lower quadrant. No rebound guarding or rigidity) Skin: positive: Color nml, No rash, Warm, Dry Neurologic/Psychiatric: positive: Oriented x3, CN's nml (2-12) - Lab Results Fish Bones: 04/10/24 06:25 04/10/24 06:25 Other Labs: Lab Results x24hrs 04/10/24 04/10/24 04/10/24 Range/Units 06:25 06:25 06:25 WBC 4.5 L (4.8-10.8) x10^3/uL RBC 2.87 L (4.20-5.40) 10^6/uL Hgb 9.5 L (12.0-16.0) g/dL Hct 29.5 L (37.0-47.0) % MCV 102.8 H (81.0-99.0) fL MCH 33.1 H (27.0-31.0) pg MCHC 32.2 (32.0-36.0) g/dL RDW 13.0 (12.0-15.0) % Plt Count 161 (130-450) 10^3/uL MPV 9.7 (7.9-10.8) fL Neut # (Auto) 2.0 (1.5-6.6) 10^3/uL Lymph # (Auto) 1.6 (1.5-3.5) 10^3/uL [place] # (Auto) 0.5 (0.0-1.0) 10^3/uL Eos # (Auto) 0.4 (0.0-0.7) 10^3/uL Baso # (Auto) 0.1 (0.0-0.1) 10^3/uL Absolute Nucleated RBC 0.00 x10^3/uL Nucleated RBC % 0.0 /100WBC Sodium 142 (135-145) mmol/L Potassium 3.7 (3.5-4.5) mmol/L Chloride 112 H (101-111) mmol/L Carbon Dioxide 26 (21-32) mmol/L Anion Gap 4.0 L (6-13) BUN 20 (6-20) mg/dL Creatinine 1.1 (0.6-1.3) mg/dL Estimated GFR (MDRD) 47 L (>89) Glucose 93 (74-104) mg/dL Calcium 8.6 (8.5-10.3) mg/dL Magnesium 1.9 (1.7-2.3) mg/dL Vitamin B12 432 (180-914) pg/mL ABX Reporting Has patient been on IV antibiotics over the past 48 hours?: Yes Sepsis Event Note (H) - Evaluation Current Stage of Sepsis: Ruled out Assessment/Plan - Problem List (1) Diverticulitis Impression: The patient will continue IV Zosyn today. We will advance her to a low residue diet. If she tolerates the diet she will be able to go home either late this afternoon or tomorrow morning. 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 The patient's daughter refused this medication. She asked the nursing staff if the patient could not be woken up from medications or vital signs. The patient slept well and had no significant issues overnight. (3) Parkinsons disease Impression: Continue Sinemet (4) Paroxysmal atrial fibrillation Impression: Currently in a sinus rhythm and rate controlled (5) Hypertension Impression: Stable (6) Chronic combined systolic and diastolic CHF, NYHA class 1 Impression: Currently she appears to be euvolemic (7) Anemia Impression: She has a macrocytic anemia. B12 and folate levels were normal (8) Ambulatory dysfunction Impression: The patient will work with physical therapy during this hospitalization to help maintain her mobility. Disposition: The patient is improving. Will advance her diet to a low residue diet today. If she tolerates she can go home either late this afternoon or tomorrow morning Time spent: 35 minutes
[2024-04-10] MEDS: MULTIVITAMIN TABLET PO SCH (09:17)
[2024-04-10] MEDS: CHOLECALCIFEROL 5,000 UNIT CAPSULE PO SCH (09:17)
--- NOTE | 2024-04-10 14:09 | Discharge Plan ---
Discharge Plan Problem Reviewed?: Yes Disposition: Home, Self Care Condition: Fair Prescriptions: Amox/Clav 500/125 [Augmentin 500/125] 1 tablet PO Q8H #30 tablet Diet: Soft (Soft low residue diet until she follows up with her primary care pro vider) Activity Restrictions: Activity as Tolerated Shower Restrictions: No Driving Restrictions: No Assistance Devices: Walker Weight Bearing: Full Weight Health Concerns: You were admitted with diverticulitis. You should complete your course of an tibiotic therapy and follow-up with your primary care physician in the next 1 to 2 weeks. Follow a low residue/low fiber diet until you follow-up with your primary care provider Assessment: The patient was examined on the day of discharge and is stable to go home today and complete a course of outpatient antibiotics No Smoking: If you smoke, Please STOP! Call for help.
--- NOTE | 2024-04-10 14:11 | DISCHARGE SUMMARY ---
Discharge Summary Admit Date: 04/08/24 Discharge Date: 04/10/24 Discharging Provider: Jess Carrasco PA-C Code Status: Attempt Resuscitation Condition at Discharge: Fair Discharge Disposition: 01 Home, Self Care - DIAGNOSES Discharge Diagnoses with Status of Each Condition: 1. Diverticulitis the patient received IV Zosyn during this hospitalization and quickly improved. Her diet has been successfully advanced. She has not required any pain medication. She will be changed over to p.o. Augmentin at discharge and will complete a course of therapy. 2. 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 Would recommend outpatient workup with her primary care provider and neurologist going forward 3. Parkinson's disease Continue Sinemet 4. Paroxysmal atrial fibrillation Currently in a sinus rhythm and rate controlled. No issues during this hospitalization 5. Hypertension Continue home dose of Coreg and losartan 6. Chronic combined systolic and diastolic congestive heart failure, NYHA class I Currently she appears to be euvolemic. This was based on her previous echocardiogram in the system 7. Anemia She has a macrocytic anemia. B12 level and folate levels were normal 8. Ambulatory dysfunction Due to her Parkinson's disease. Would recommend continuing to use her walker in the outpatient setting and will defer to her primary care physician if she needs further physical therapy - HPI History of Present Illness: From the admission HP: Patient is an 83-year-old female with a past medical history of Parkinson's disease with labile blood pressures, hyperlipidemia who presented to the ED due to complaints of abdominal pain. A CT abdomen/pelvis was performed which revealed inflammation in the left lower quadrant. Patient was started on IV antibiotics with ceftriaxone and metronidazole. During my evaluation, patient complained of a bandlike mid abdominal pain sensation. She denied any fever or chills. She was eval by general surgery who recommended medical management. Family did request transfer to [place] and however they did not have any beds available. Patient has no prior surgical history. Cannot recall if she has had a colonoscopy in the past. Patient is DNR. - HOSPITAL COURSE Hospital Course: The patient was admitted to the hospital. She was started on IV Zosyn. Over the next 2 days the patient significantly improved. Her diet was slowly adv anced to a low residue diet. By the time she was discharged from the hospital she was tolerating her diet. She had had a small bowel movement and she had not required any pain medication in the past 24 hours. At this point it is felt that she can safely be discharged home with close outpatient follow-up. She will complete a course of p.o. Augmentin in the outpatient setting and should follow-up with her primary care physician next week. - ALLERGIES Allergies/Adverse Reactions: Allergies Allergy/AdvReac Type Severity Reaction Status Date / Time selegiline Allergy Severe Unknown Verified 04/07/24 18:56 dicyclomine [From Bentyl] Allergy Unknown Verified 04/07/24 18:56 iodine Allergy Hives Verified 04/07/24 18:56 tramadol Allergy Unknown Verified 04/07/24 18:56 - MEDICATIONS Home Medications: Ambulatory Orders Medication Instructions Recorded Confirmed carvediloL [Coreg] 3.125 mg PO BID #60 tablet 08/31/17 04/08/24 Acetaminophen [Tylenol] 500 mg PO Q6H PRN 04/08/24 04/08/24 Aspirin EC [Ecotrin] 81 mg PO DAILY 04/08/24 04/08/24 Calcium/D3/Zinc/Copper/Senthil 2 tab PO BID 04/08/24 04/08/24 [Citracal-D3 Maximum Plus Caplt] Carbidopa/Levodopa 1 each PO UD 04/08/24 04/08/24 [Carbidopa-Levodopa 25-100 Tab] Carboxymethylcellulose Sodium 1 drops EACHEYE BID 04/08/24 04/08/24 [Refresh Tears] Cholecalciferol (Vitamin D3) 125 mcg PO UD 04/08/24 04/08/24 [Vitamin D3 Max] Losartan [Cozaar] 25 mg PO DAILY PRN 04/08/24 04/08/24 Melatonin 3 mg PO HS PRN 04/08/24 04/08/24 Multivitamin [Theragran] 1 tab PO DAILY 04/08/24 04/08/24 Mv-Min/FA/Vit K/Lutein/Zeaxant 1 cap PO DAILY 04/08/24 04/08/24 [Preservision Areds 2 Plus Mv] Opicapone [Ongentys] 50 mg PO QPM 04/08/24 04/08/24 Rosuvastatin Calcium 5 mg PO QPM 04/08/24 04/08/24 Ubidecarenone [Coenzyme Q10] 200 mg PO DAILY 04/08/24 04/08/24 Amox/Clav 500/125 [Augmentin 1 tablet PO Q8H #30 tablet 04/10/24 500/125] - PHYSICAL EXAM AT DISCHARGE General Appearance: positive: No acute distress, Alert Eyes Bilateral: positive: Normal inspection ENT: positive: ENT inspection nml Neck: positive: Nml inspection Respiratory: positive: Chest non-tender, No respiratory distress, Breath sounds nml Cardiovascular: positive: Regular rate & rhythm, No murmur, No gallop. negative: Friction rub Abdomen: positive: Tenderness (Extremely mild tenderness to palpation in the right lower quadrant. No rebound guarding or rigidity) Skin: positive: Color nml, No rash, Warm, Dry Extremities: positive: Non-tender, Full ROM Neurologic/Psychiatric: positive: Oriented x3, CN's nml (2-12) - LABS Result Diagrams: 04/10/24 06:25 04/10/24 06:25 - SEPSIS Current Stage of Sepsis: Ruled out - FOLLOW UP Follow Up: The patient should follow-up with her primary care physician in 1 week - TIME SPENT Time Spent in Discharge (Minutes): 45
== END 2024-04-10 14:30 | disposition home or self-care (01) | DRG 392 ==
LOC: EDUNIT# → ED 01:03 → MS3 10:37
PROVIDERS: ADMIT Family Medicine; ATTEND Physician Assistant
DX: K57.92 Diverticulitis of intestine, part unspecified, without perforation or abscess without bleeding (principal); F02.818 Dementia in other diseases classified elsewhere, unspecified severity, with other behavioral disturbance; I50.42 Chronic combined systolic (congestive) and diastolic (congestive) heart failure; G20.A1 Parkinson's disease without dyskinesia, without mention of fluctuations; I48.0 Paroxysmal atrial fibrillation; I11.0 Hypertensive heart disease with heart failure; D53.9 Nutritional anemia, unspecified; E78.5 Hyperlipidemia, unspecified; Z66 Do not resuscitate; K57.90 Diverticulosis of intestine, part unspecified, without perforation or abscess without bleeding; Z78.1 Physical restraint status
CPT/HCPCS: 36415; 74176; 80048; 80053; 82607; 83605; 83690; 83735; 85025; 87040; 96365; 96375; 96376; 99284; 99285; A9270